=== PATIENT | male | born 1955 | race Caucasian/White ===

== ENCOUNTER 2018-06-06 15:06 | Observation (INO) ==
--- NOTE | 2018-06-06 16:35 | Pharmacy Consult Notes ---
[facility] Pharmacy VTE Monitoring - Patient Demographics Admission date: 06/06/18 Report Date: 06/06/18 Time: 16:35 Allergies/Adverse Reactions: Patient Allergies No Known Drug Allergies Allergy (Unknown, Verified 06/06/18 16:17) Unknown allergy reaction Height: 1.83 m Weight: 98.571 kg - VTE Risk Clinical Trial Participant: No - Prophylaxis VTE Prophylaxis Ordered?: Yes Types of VTE Prophylaxis: TEDS Knee High
--- NOTE | 2018-06-06 17:17 | History & Physical Report ---
*Admission Date: 06/06/18 <Mirna Palmer 06/06/18 17:45> *Chief complaint: Abdominal pain <Mirna Palmer 06/06/18 17:45> *History of present illness: Mr. Castanon is a 62-year-old male with a history of chronic back pain who presented to the office of [facility] complaining of dizziness and abdominal pain. He states that he has not felt well for about a week with a congested cough and upper abdominal pain. He has had difficulty with constipation and took a laxative on 06/03/2018 with minimal results. His bowels also moved minimally this morning. He has been eating very little due to nausea, heartburn, and upper abdominal/ epigastric pain. He has not vomited. He denies any melena or hematochezia. He is experiencing belching, bloating, along with the discomfort. He did try to go to work this morning and became diaphoretic and fainted. He stated this also happened last week as well. He is unsure if he was totally unconscious. He had the same abdominal discomfort but no actual chest pain. He feels short of breath due to the pressure in his abdomen. In the office of [facility] he was felt to be a little dehydrated and was tachycardic. With this generalized abdominal pain he was admitted for further evaluation and treatment. To note also his father of colon cancer in his 60s. Mr. Castanon has never had a GI workup. At the time of this exam patient continues to have upper abdominal pain and feels short of breath. O2 sats are 97%, heart rate is 100-110. He has had his x-rays completed and results are pending. Labs are being drawn at present. <Mirna Palmer 06/06/18 17:45> [facility] History Medical History: Reports:: Gastroesophageal Reflux Disease(GERD) Denies:: Cerebrovascular Accident, Diabetes Mellitus Type 2 <Mirna Palmer 06/06/18 17:45> *Have you ever received a pneumonia vaccine?: No <Mirna Palmer 06/06/18 17:45> *Have you received a flu vaccine this season?: No <Mirna Palmer 06/06/18 17:45> Comment:: He does experience chronic back pain <Palmer,Mirna 06/06/18 17:45> Laterality Cases: Bilateral: Tonsillectomy <SpencerMirna 06/06/18 17:45> Other Surgeries: Yes: Hernia Repair <SpencerMirna 06/06/18 17:45> - *Social History Smoking Status: Current every day smoker <SpencerMirna 06/06/18 17:45> Alcohol Intake: current <PalmerMirna 06/06/18 17:45> Alcohol Intake Frequency:: other <PalmreMirna 06/06/18 17:45> *Occupational Status:: employed <PalmerMirna 06/06/18 17:45> Housing: house <SpencerMirna 06/06/18 17:45> *Travel in the last 8 weeks: None <PalmerMirna 06/06/18 17:45> Family Hx:: Cancer <PalmerMirna 06/06/18 17:45> Comment: father with colon cancer <PalmerMirna 06/06/18 17:45> Review of Systems - Constitutional Reports fatigue, Reports headache(s), Reports lack of energy, Denies fever(s) <PalmerMirna 06/06/18 17:45> - ENT Reports ear pain, Reports sore throat <PalmerMirna 06/06/18 17:45> - *Cardiovascular Reports shortness of breath, Reports fainting, Denies chest pain, Denies generalized swelling, Denies irregular heart rhythm, Denies leg swelling, Denies rapid, pounding, or irregular heartbeat <Palmer,Mirna 06/06/18 17:45> - *Respiratory Reports cough, Reports shortness of breath, Denies coughing up blood <PalmerMirna 06/06/18 17:45> - *Gastrointestinal Reports abdominal pain, Reports belching, Reports bloating, Reports change in bowel habits, Reports change in stools, Reports constipation, Reports heartburn, Reports nausea, Denies coffee ground vomit, Denies excessive passing of gas, Denies incontinent of stools, Denies vomiting blood, Denies black, tarry stools, Denies vomiting <SpencerMirna 06/06/18 17:45> - *Genitourinary Denies difficulty urinating <Mirna Palmer - 06/06/18 17:45> - *Musculoskeletal Reports back pain, Denies abnormal walking <Mirna Palmer - 06/06/18 17:45> - *Neurologic Reports dizziness, Reports dizziness, Reports weakness, Denies abnormal walking, Denies abnormal speech, Denies seizure-like activity, Denies seizure-like activity <Mirna Palmer - 06/06/18 17:45> Meds Allergies Allergy/AdvReac Type Severity Reaction Status Date / Time No Known Drug Allergies Allergy Unknown Unknown Verified 06/06/18 16:17 allergy reaction <Drake Robles - 06/06/18 19:11> Exam Vital signs and Labs for Last 24 Hours: Temp Pulse Resp BP Pulse Ox 97.5 F L 94 H 18 141/96 H 97 06/06/18 16:32 06/06/18 16:32 06/06/18 16:32 06/06/18 16:32 06/06/18 16:32 Laboratory Results - last 24 hr 06/06/18 17:40: WBC 11.6 H, RBC 5.75, Hgb 17.1, Hct 49.7, MCV 86.6, MCH 29.8, MCHC 34.4, RDW 13.4, Plt Count 268, MPV 7.4, Neut % (Auto) 64.7, Lymph % (Auto) 24.8, [place]ha % (Auto) 8.1, Eos % (Auto) 1.5, Baso % (Auto) 0.9, Neut # (Auto) 7.5, Lymph # (Auto) 2.9, [place]ha # (Auto) 0.9, Eos # (Auto) 0.2, Baso # (Auto) 0.1 06/06/18 17:40: Sodium 139, Potassium 4.2, Chloride 103, Carbon Dioxide 25, Anion Gap 15.2 H, BUN 18, Creatinine 1.04, Estimated Creat Clear 103, Estimated GFR 72, Est GFR ( Amer) 88, Glucose 83, Calcium 9.2, Total Bilirubin 0.8, AST 18, ALT 27, Alkaline Phosphatase 62, Total Protein 7.3, Albumin 4.0, Globulin 3.3 H, Albumin/Globulin Ratio 1.2, TSH 2.38 06/06/18 17:40: Troponin I < 0.02, Amylase 67 06/06/18 17:40: Lipase 170 <Drake Robles - 06/06/18 19:11> Temp Pulse Resp BP Pulse Ox 97.5 F L 94 H 18 141/96 H 97 06/06/18 16:32 06/06/18 16:32 06/06/18 16:32 06/06/18 16:32 06/06/18 16:32 <Mirna Palmer - 06/06/18 17:45> I & O for Last 24 hours: Intake & Output 06/03/18 06/04/18 06/05/18 06/06/18 23:59 23:59 23:59 23:59 Intake Total 1360 / 1360 Balance 1360 / 1360 Weight 217 lb 5 oz <Drake Robles - 06/06/18 19:11> Intake & Output 06/04/18 06/05/18 06/06/18 06/07/18 11:59 11:59 11:59 11:59 Weight 217 lb 5 oz <Mirna Palmer 06/06/18 17:45> - Constitutional no acute distress <SpencerMirna 06/06/18 17:45> - *Routine HEENT Exam Head: Present: normocephalic, atraumatic <PalmerMirna 06/06/18 17:45> Eye: Present: PERRL <SpencerMirna 06/06/18 17:45> ENT: Present: mucous membranes moist, oropharynx clear <PalmerMirna 06/06/18 17:45> - *Routine Neck Exam Present: supple, full ROM. Absent: carotid bruit, lymphadenopathy, thyromegaly <PalmerMirna 06/06/18 17:45> - *Routine Respiratory Exam Present: CTA bilaterally (A&P) <PalmerMirna 06/06/18 17:45> - *Routine Cardiovascular Exam Present: RRR (100-110/min) <PalmerMirna 06/06/18 17:45> - *Routine Abdominal Exam Present: soft, normoactive bowel sounds, tenderness (epigastrium and LUQ). Absent: guarding, organomegaly <PalmerMirna Casie 06/06/18 17:45> - *Routine Extremities Exam Absent: edema, calf tenderness <Mirna Palmer - 06/06/18 17:45> - *Routine Neurological Exam Present: alert, oriented X3 <Mirna Palmer - 06/06/18 17:45> Assessment and Plan (1) Abdominal pain Current visit: Yes Status: Acute Category: Medical Code(s): R10.9 - Unspecified abdominal pain (2) GERD (gastroesophageal reflux disease) Current visit: Yes Status: Acute Category: Medical Code(s): K21.9 - Gastro-esophageal reflux disease without esophagitis (3) Tachycardia Current visit: Yes Status: Acute Category: Medical Code(s): R00.0 - Tachycardia, unspecified (4) Shortness of breath Current visit: Yes Status: Acute Category: Medical Code(s): R06.02 - Shortness of breath (5) Left-sided low back pain without sciatica Current visit: Yes Status: Acute Category: Medical Code(s): M54.5 - Low back pain <Drake Robles - 06/06/18 19:11> (1) Abdominal pain Current visit: Yes Status: Acute Category: Medical Code(s): R10.9 - Unspecified abdominal pain (2) GERD (gastroesophageal reflux disease) Current visit: Yes Status: Acute Category: Medical Code(s): K21.9 - Gastro-esophageal reflux disease without esophagitis (3) Tachycardia Current visit: Yes Status: Acute Category: Medical Code(s): R00.0 - Tachycardia, unspecified (4) Shortness of breath Current visit: Yes Status: Acute Category: Medical Code(s): R06.02 - Shortness of breath (5) Left-sided low back pain without sciatica Current visit: Yes Status: Acute Category: Medical Code(s): M54.5 - Low back pain <Mirna Palmer - 06/06/18 17:09> - Assessment and plan all Dx Assessment and Plan for all problems:: Saw patient in the office and here at [facility] after admission, agree with above note. <Drake Robles - 06/06/18 19:11> Labs and x-ray results are pending. We will start him on a PPI, full liquids, Dulcolax tabs, antiemetics and pain medicine. Further treatment as indicated by test results and patient response. <Mirna Palmer - 06/06/18 17:45>
[2018-06-06 18:01] LABS: Basophils # 0.1 K/mm3 (0-0.2); Basophils % 0.9 % (0.1-2.0); Eosinophils # 0.2 K/mm3 (0.0-0.4); Eosinophils % 1.5 % (0.1-12.0); Hematocrit 49.7 % (42.0-52.0); Hemoglobin 17.1 g/dL (14.1-18.0); Lymphocytes # 2.9 K/mm3 (0.7-4.5); Lymphocytes % 24.8 % (10-50); Mean Corpuscular HGB Conc 34.4 g/dL (31.8-35.4); Mean Corpuscular Hemoglobin 29.8 pg (27.0-31.2); Mean Corpuscular Volume 86.6 fl (80-94); Mean Platelet Volume 7.4 fl (7.4-10.4); Monocytes # 0.9 K/mm3 (0.1-1.0); Monocytes % 8.1 % (1.7-9.3); Neutrophils # 7.5 K/mm3 (1.8-7.8); Neutrophils % 64.7 % (37.0-80.0); Platelet Count 268 K/mm3 (142-424); Red Blood Count 5.75 M/mm3 (4.60-6.20); Red Cell Distribution Width 13.4 % (11.5-17.5); White Blood Count 11.6 K/mm3 (4.8-10.8)
[2018-06-06 18:15] LABS: Amylase 67 U/L (25-115)
[2018-06-06 18:22] LABS: Albumin/Globulin Ratio 1.2 (1.1-1.8); Anion Gap 15.2 mEq/L (5-15); Bilirubin,Total 0.8 mg/dL (0.2-1.0); Calcium 9.2 mg/dL (8.5-10.1); Globulin 3.3 gm/dl (1.3-3.2); Potassium 4.2 mmoL/L (3.5-5.1); Thyroid Stimulating Hormone 2.38 uIU/ml (0.358-3.740); Total Protein,Serum 7.3 gm/dL (6.4-8.2)
[2018-06-06 21:33] LABS: Microscopic, Urine URINE MICROSCOPIC (MICROSCOPIC)
[2018-06-06 21:37] LABS: Appearance,Urine CLEAR (Clear); Bilirubin,Urine Negative (Negative); Blood, Urine TRACE-I (Negative); Color,Urine YELLOW (Yellow); Glucose,Urine (UA) Negative (Negative); Ketones,Urine TRACE (Negative); Leukocyte Esterase,Urine Negative (Negative); Protein,Urine Negative (Negative); Urobilinogen,Urine 0.2 EU/dl (0.2)
[2018-06-06 22:03] LABS: Bacteria,Urine Trace /lpf; RBC,Urine Occasional #/hpf (0-3); Squamous Epithelial Cell,Urine Occasional #/hpf (0-5)
[2018-06-07 05:54] LABS: Basophils # 0.1 K/mm3 (0-0.2); Basophils % 0.8 % (0.1-2.0); Eosinophils # 0.3 K/mm3 (0.0-0.4); Eosinophils % 4.6 % (0.1-12.0); Hematocrit 42.4 % (42.0-52.0); Lymphocytes # 2.3 K/mm3 (0.7-4.5); Lymphocytes % 33.5 % (10-50); Mean Corpuscular HGB Conc 34.6 g/dL (31.8-35.4); Mean Corpuscular Hemoglobin 30.3 pg (27.0-31.2); Mean Corpuscular Volume 87.4 fl (80-94); Mean Platelet Volume 7.3 fl (7.4-10.4); Monocytes # 0.5 K/mm3 (0.1-1.0); Monocytes % 7.5 % (1.7-9.3); Neutrophils # 3.6 K/mm3 (1.8-7.8); Neutrophils % 53.6 % (37.0-80.0); Platelet Count 216 K/mm3 (142-424); Red Blood Count 4.85 M/mm3 (4.60-6.20); Red Cell Distribution Width 13.4 % (11.5-17.5); White Blood Count 6.8 K/mm3 (4.8-10.8)
[2018-06-07 06:01] LABS: Calcium 8.5 mg/dL (8.5-10.1)
[2018-06-07 06:21] LABS: Hemoglobin 14.8 g/dL (14.1-18.0)
--- NOTE | 2018-06-07 08:26 | Progress Note ---
<Mirna Palmer - Last Filed: 06/07/18 08:38> Internal Medicine - PN: Subj Interval history: Patient had a comfortable night although he did not sleep. He states that tramadol did help his pain yesterday. He is now experiencing some epigastric discomfort along with reflux. He becomes short of breath with the discomfort. He has been taking clear liquids and is now drinking a pop. He has been voiding without difficulty. Bowels have not moved. He is passing flatus. Exam Vital signs and Labs for Last 24 Hours: Temp Pulse Resp BP Pulse Ox 97.7 F 68 18 121/76 97 06/07/18 07:29 06/07/18 07:29 06/07/18 07:29 06/07/18 07:29 06/07/18 07:29 Laboratory Results - last 24 hr 06/06/18 17:40: WBC 11.6 H, RBC 5.75, Hgb 17.1, Hct 49.7, MCV 86.6, MCH 29.8, MCHC 34.4, RDW 13.4, Plt Count 268, MPV 7.4, Neut % (Auto) 64.7, Lymph % (Auto) 24.8, [place] % (Auto) 8.1, Eos % (Auto) 1.5, Baso % (Auto) 0.9, Neut # (Auto) 7.5, Lymph # (Auto) 2.9, [place] # (Auto) 0.9, Eos # (Auto) 0.2, Baso # (Auto) 0.1 06/06/18 17:40: Sodium 139, Potassium 4.2, Chloride 103, Carbon Dioxide 25, Anion Gap 15.2 H, BUN 18, Creatinine 1.04, Estimated Creat Clear 103, Estimated GFR 72, Est GFR ( Amer) 88, Glucose 83, Calcium 9.2, Total Bilirubin 0.8, AST 18, ALT 27, Alkaline Phosphatase 62, Total Protein 7.3, Albumin 4.0, Globulin 3.3 H, Albumin/Globulin Ratio 1.2, TSH 2.38 06/06/18 17:40: Troponin I < 0.02, Amylase 67 06/06/18 17:40: Lipase 170 06/06/18 20:31: Urine Color Yellow, Urine Appearance Clear, Urine pH 6.0, Ur Specific [place] 1.020, Urine Protein Negative, Urine Glucose (UA) Negative, Urine Ketones Trace, Urine Blood Trace-i, Urine Nitrate Negative, Urine Bilirubin Negative, Urine Urobilinogen 0.2, Ur Leukocyte Esterase Negative, Urine RBC Occasional, Urine WBC 3-5, Ur Squamous Epith Cells Occasional, Urine Bacteria Trace 06/07/18 05:32: WBC 6.8 D, RBC 4.85, Hgb 14.8 D, Hct 42.4, MCV 87.4, MCH 30.3, MCHC 34.6, RDW 13.4, Plt Count 216, MPV 7.3 L, Neut % (Auto) 53.6, Lymph % (Auto) 33.5, [place] % (Auto) 7.5, Eos % (Auto) 4.6, Baso % (Auto) 0.8, Neut # (Auto) 3.6, Lymph # (Auto) 2.3, [place] # (Auto) 0.5, Eos # (Auto) 0.3, Baso # (Auto) 0.1 06/07/18 05:32: Sodium 140, Potassium 4.0, Chloride 105, Carbon Dioxide 24, Anion Gap 15.0, BUN 14, Creatinine 0.95, Estimated Creat Clear 107, Estimated GFR 80, Est GFR ( Amer) 97, Glucose 95, Calcium 8.5 I & O for Last 24 hours: Intake & Output 06/04/18 06/05/18 06/06/18 06/07/18 11:59 11:59 11:59 11:59 Intake Total 2179 / 2179 Output Total 1400 / 1400 Balance 779 / 779 Weight 217 lb 5 oz Radiology Reports for the Last 24 Hours: 06/06/2018 acute abdominal series IMPRESSION: No free air beneath the diaphragm Nonspecific bowel gas pattern. No obstruction. No prominent bowel dilatation or wall. However I would note a borderline distended gas-filled loop of small bowel at mid epigastric region, as well along with generous gas and transverse colon in this same region.--. Localized gas-filled bowel loops at midepigastric region is a pattern that can be seen with pancreatitis thus you may want to exclude such in the workup. 06/06/2018 chest x-ray IMPRESSION Nothing definitely acute of the chest Regarding abdominal pain no No free air beneath the diaphragm. No focal pneumonia Small 5 mm nodular density at the left midlung,, with similar small nodular density upper right lung at the second anterior interspace-I suspect these are most likely partially calcified granulomas;... But prior CXR if available or follow-up CXR in 2-3 months would be helpful to confirm such. - Constitutional no acute distress - *Routine Respiratory Exam Present: CTA bilaterally (Anteriorly and posteriorly) - *Routine Cardiovascular Exam Present: RRR - *Routine Abdominal Exam Present: soft, normoactive bowel sounds, tenderness (Epigastrium), distended - *Routine Extremities Exam Absent: edema, calf tenderness - *Routine Neurological Exam Present: alert, oriented X3 Assessment and Plan (1) Abdominal pain Current visit: Yes Status: Acute Category: Medical Code(s): R10.9 - Unspecified abdominal pain (2) GERD (gastroesophageal reflux disease) Current visit: Yes Status: Acute Category: Medical Code(s): K21.9 - Gastro-esophageal reflux disease without esophagitis (3) Tachycardia Current visit: Yes Status: Acute Category: Medical Code(s): R00.0 - Tachycardia, unspecified (4) Shortness of breath Current visit: Yes Status: Acute Category: Medical Code(s): R06.02 - Shortness of breath (5) Left-sided low back pain without sciatica Current visit: Yes Status: Acute Category: Medical Code(s): M54.5 - Low back pain - Assessment and plan all Dx Assessment and Plan for all problems:: Patient receiving tramadol now for his pain. Continue with IV fluids for now. CBC is normal today. Electrolytes are normal. Will obtain right upper quadrant ultrasound. <Drake Robles - Last Filed: 06/07/18 08:44> Exam Vital signs and Labs for Last 24 Hours: Temp Pulse Resp BP Pulse Ox 97.7 F 68 18 121/76 97 06/07/18 07:29 06/07/18 07:29 06/07/18 07:29 06/07/18 07:29 06/07/18 07:29 Laboratory Results - last 24 hr 06/06/18 17:40: WBC 11.6 H, RBC 5.75, Hgb 17.1, Hct 49.7, MCV 86.6, MCH 29.8, MCHC 34.4, RDW 13.4, Plt Count 268, MPV 7.4, Neut % (Auto) 64.7, Lymph % (Auto) 24.8, [place] % (Auto) 8.1, Eos % (Auto) 1.5, Baso % (Auto) 0.9, Neut # (Auto) 7.5, Lymph # (Auto) 2.9, [place] # (Auto) 0.9, Eos # (Auto) 0.2, Baso # (Auto) 0.1 06/06/18 17:40: Sodium 139, Potassium 4.2, Chloride 103, Carbon Dioxide 25, Anion Gap 15.2 H, BUN 18, Creatinine 1.04, Estimated Creat Clear 103, Estimated GFR 72, Est GFR ( Amer) 88, Glucose 83, Calcium 9.2, Total Bilirubin 0.8, AST 18, ALT 27, Alkaline Phosphatase 62, Total Protein 7.3, Albumin 4.0, Globulin 3.3 H, Albumin/Globulin Ratio 1.2, TSH 2.38 06/06/18 17:40: Troponin I < 0.02, Amylase 67 06/06/18 17:40: Lipase 170 06/06/18 20:31: Urine Color Yellow, Urine Appearance Clear, Urine pH 6.0, Ur Specific [place] 1.020, Urine Protein Negative, Urine Glucose (UA) Negative, Urine Ketones Trace, Urine Blood Trace-i, Urine Nitrate Negative, Urine Bilirubin Negative, Urine Urobilinogen 0.2, Ur Leukocyte Esterase Negative, Urine RBC Occasional, Urine WBC 3-5, Ur Squamous Epith Cells Occasional, Urine Bacteria Trace 06/07/18 05:32: WBC 6.8 D, RBC 4.85, Hgb 14.8 D, Hct 42.4, MCV 87.4, MCH 30.3, MCHC 34.6, RDW 13.4, Plt Count 216, MPV 7.3 L, Neut % (Auto) 53.6, Lymph % (Auto) 33.5, [place] % (Auto) 7.5, Eos % (Auto) 4.6, Baso % (Auto) 0.8, Neut # (Auto) 3.6, Lymph # (Auto) 2.3, [place] # (Auto) 0.5, Eos # (Auto) 0.3, Baso # (Auto) 0.1 06/07/18 05:32: Sodium 140, Potassium 4.0, Chloride 105, Carbon Dioxide 24, Anion Gap 15.0, BUN 14, Creatinine 0.95, Estimated Creat Clear 107, Estimated GFR 80, Est GFR ( Amer) 97, Glucose 95, Calcium 8.5 I & O for Last 24 hours: Intake & Output 06/04/18 06/05/18 06/06/18 06/07/18 23:59 23:59 23:59 23:59 Intake Total 1360 / 1360 819 / 819 Output Total 300 / 300 1100 / 1100 Balance 1060 / 1060 -281 / -281 Weight 217 lb 5 oz Assessment and Plan (1) Abdominal pain Current visit: Yes Status: Acute Category: Medical Code(s): R10.9 - Unspecified abdominal pain (2) GERD (gastroesophageal reflux disease) Current visit: Yes Status: Acute Category: Medical Code(s): K21.9 - Gastro-esophageal reflux disease without esophagitis (3) Tachycardia Current visit: Yes Status: Acute Category: Medical Code(s): R00.0 - Tachycardia, unspecified (4) Shortness of breath Current visit: Yes Status: Acute Category: Medical Code(s): R06.02 - Shortness of breath (5) Left-sided low back pain without sciatica Current visit: Yes Status: Acute Category: Medical Code(s): M54.5 - Low back pain - Assessment and plan all Dx Assessment and Plan for all problems:: Saw patient, agree with above note.
--- NOTE | 2018-06-07 22:26 | Discharge Summary ---
General - General Admission date:: 06/06/18 Discharge date: 06/07/18 HPI HPI: Mr. Castanon is a 62-year-old male with a history of chronic back pain who presented to the office of [facility] complaining of dizziness and abdominal pain. He states that he has not felt well for about a week with a congested cough and upper abdominal pain. He has had difficulty with constipation and took a laxative on 06/03/2018 with minimal results. His bowels also moved minimally this morning. He has been eating very little due to nausea, heartburn, and upper abdominal/ epigastric pain. He has not vomited. He denies any melena or hematochezia. He is experiencing belching, bloating, along with the discomfort. He did try to go to work this morning and became diaphoretic and fainted. He stated this also happened last week as well. He is unsure if he was totally unconscious. He had the same abdominal discomfort but no actual chest pain. He feels short of breath due to the pressure in his abdomen. In the office of [facility] he was felt to be a little dehydrated and was tachycardic. With this generalized abdominal pain he was admitted for further evaluation and treatment. To note also his father of colon cancer in his 60s. Mr. Castanon has never had a GI workup. At the time of this exam patient continues to have upper abdominal pain and feels short of breath. O2 sats are 97%, heart rate is 100-110. He has had his x-rays completed and results are pending. Labs are being drawn at present. Hospital Course Hospital Course: The patient's abdominal x-ray showed a borderline distended gas-filled loop of small bowel at the mid epigastric area as well as generous gas in the transverse colon. The patient's chest x-ray showed nothing acute other than a small 5 mm nodular density at left mid lung. The patient was started on a PPI, full liquid diet, Dulcolax tablets, antiemetics, and pain medication. His amylase and lipase were normal. The tramadol did help his pain but he continued with epigastric discomfort with reflux. He tolerated clear liquids. His white blood cell count was initially elevated but normalized. An ultrasound was ordered of the right upper quadrant. It showed gallbladder sludge. The patient's diet was advanced to full liquids and he tolerated this well and was passing gas. He was stable to be discharged home with an outpatient HIDA scan. Objective Vital signs: Temp Pulse Resp BP Pulse Ox 97.7 F 59 L 18 145/81 H 100 06/07/18 16:00 06/07/18 16:00 06/07/18 16:00 06/07/18 16:00 06/07/18 16:00 Narrative: - Constitutional no acute distress - *Routine HEENT Exam Head: Present: normocephalic, atraumatic Eye: Present: PERRL ENT: Present: mucous membranes moist, oropharynx clear - *Routine Neck Exam Present: supple, full ROM. Absent: carotid bruit, lymphadenopathy, thyromegaly - *Routine Respiratory Exam Present: CTA bilaterally (A&P) - *Routine Cardiovascular Exam Present: RRR (100-110/min) - *Routine Abdominal Exam Present: soft, normoactive bowel sounds, tenderness (epigastrium and LUQ). Absent: guarding, organomegaly - *Routine Extremities Exam Absent: edema, calf tenderness - *Routine Neurological Exam Present: alert, oriented X3 Results Labs on day of discharge: Labs from last 24 hours 06/07/18 06/07/18 05:32 05:32 WBC 6.8 D RBC 4.85 Hgb 14.8 D Hct 42.4 MCV 87.4 MCH 30.3 MCHC 34.6 RDW 13.4 Plt Count 216 MPV 7.3 L Neut % (Auto) 53.6 Lymph % (Auto) 33.5 [place] % (Auto) 7.5 Eos % (Auto) 4.6 Baso % (Auto) 0.8 Neut # (Auto) 3.6 Lymph # (Auto) 2.3 [place] # (Auto) 0.5 Eos # (Auto) 0.3 Baso # (Auto) 0.1 Sodium 140 Potassium 4.0 Chloride 105 Carbon Dioxide 24 Anion Gap 15.0 BUN 14 Creatinine 0.95 Estimated Creat Clear 107 Estimated GFR 80 Est GFR ( Amer) 97 Glucose 95 Calcium 8.5 DS: Diagnosis - Discharge Diagnosis (1) Abdominal pain Status: Acute (2) GERD (gastroesophageal reflux disease) Status: Acute (3) Tachycardia Status: Acute (4) Shortness of breath Status: Acute (5) Left-sided low back pain without sciatica Status: Acute Discharge Plan - Patient Discharge Instructions ACTIVITY: Continue current activity DIET: continue same diet (low fat) Additional Instructions: Please take medications as prescribed. Follow up with Dr. Robles in 2 weeks. Patient Instructions: DI for Gastroesophageal Reflux Disease (GERD), DI for Abdominal Pain-Adult - Follow up Plan Follow up with: Drake Robles MD [Primary Care Provider] - 2 weeks Disposition: Home, Self-[facility] Medications: Home Medications Medication Instructions Recorded Confirmed Type No Known Home Medications 06/07/18 06/07/18 History Ondansetron HCl [Zofran 4mg Tab] 4 mg PO Q8HP PRN #20 tab 06/07/18 Rx Polyethylene Glycol 3350 [Miralax 17 gm PO DAILY #30 day 06/07/18 Rx Powder] Tramadol HCl [Tramadol 50mg 50 mg PO Q4HP PRN #18 tab 06/07/18 Rx Tab] Prescriptions/Medication Reconciliation: New Polyethylene Glycol 3350 [Miralax Powder] 17 gm PO DAILY #30 day Tramadol HCl [Tramadol 50mg Tab] 50 mg PO Q4HP PRN #18 tab PRN Reason: Moderate Pain Ondansetron HCl [Zofran 4mg Tab] 4 mg PO Q8HP PRN #20 tab PRN Reason: Nausea Continue No Known Home Medications
== END 2018-06-07 17:35 | disposition home or self-care (01) ==
LOC: 2ND
PROVIDERS: ADMIT Family Medicine; ATTEND Family Medicine
CPT/HCPCS: 36415; 71020; 71046; 74019; 74020; 76705; 80048; 80053; 81001; 82150; 83690; 84443; 84484; 85025; 93005; G0378

== ENCOUNTER → 2018-06-15 09:30 | Outpatient (CLI) | payer BC, SELFPAY ==
--- NOTE | 2018-06-15 09:32 | NM_ITS ---
NM hepatobiliary [facility] pharm HISTORY: Right upper quadrant pain ITS.REASON: EPIGASTRIC PAIN, GB SLUDGE ORDERING PHYSICIAN: Drake Robles MD PATIENT AGE: 62 years COMPARISON: None DOSE: 8.53MCI TC choletec FINDINGS: Homogeneous activity is present within the hepatic parenchyma. Activity is present in the gallbladder by 15 minutes. Activity is present in the small bowel by 50 minutes. The gallbladder ejection fraction is calculated to be 91% which is within normal limits. The patient did not report pain or other symptoms during CCK infusion. IMPRESSION: Unremarkable hepatobiliary scan and gallbladder ejection fraction. No evidence of common or cystic duct obstruction with normal gallbladder ejection fraction
== END ==
PROVIDERS: PCP Family Medicine; Visit Provider Family Medicine
DX: R10.13 Epigastric pain (principal); K82.8 Other specified diseases of gallbladder
CPT/HCPCS: 78226; A9537; J2805

== ENCOUNTER → 2018-06-28 08:34 | Outpatient (CLI) | payer BC, SELFPAY ==
[2018-06-28 09:15] LABS: Blood Urea Nitrogen 7 mg/dL (7-18); Creatinine,Serum 0.96 mg/dL (0.70-1.30); Estimated Glomerular Filt Rate 79 ml/min (>60); GFR (African American) 96 ML/MIN (>60)
--- NOTE | 2018-06-28 09:28 | CT_ITS ---
CT abdomen pelvis w con CLINICAL INDICATION: Epigastric pain, constipation ITS.REASON: EPIGASTRIC PAIN ORDERING PHYSICIAN: Drake Robles MD PATIENT AGE: 62 years COMPARISON: None TECHNIQUE: Axial images obtained with sagittal and coronal reformats. All CT scans at the facility use one or more dose reduction, viz: automated exposure control, ma/kV adjustment per patient size (including targeted exams where dose is matched to indication, i.e. head), or iterative reconstruction technique. PROCEDURE: Oral Contrast: Redicat IV Contrast: 75 mL's Optiray 350. FINDINGS: Lower thorax: There are coronary artery calcifications. Lung bases are clear. The liver, gallbladder, spleen, adrenal glands, kidneys, and pancreas have an unremarkable appearance. No renal or ureteral calculi. No hydronephrosis. No intestinal obstruction or free air. Unremarkable appendix. There is diverticulosis of the descending and sigmoid colon but no evidence of diverticulitis. There is increased density in the right inguinal region which may be due to prior surgery. The prostate is slightly prominent at 5.7 cm. No pelvic mass or abnormal fluid collection is evident. There are degenerative changes in the lumbar spine and hips IMPRESSION: 1. No acute abdominal or pelvic findings. 2. Coronary artery calcifications. 3. Sigmoid diverticulosis. No evidence of diverticulitis There are degenerative changes in the lumbar spine and hips.
== END ==
PROVIDERS: PCP Family Medicine; Visit Provider Family Medicine
DX: R10.13 Epigastric pain (principal)
CPT/HCPCS: 36415; 74177; 82565; 84520; Q9967

== ENCOUNTER 2020-08-06 17:23 | Emergency (ER) | payer BC, SELFPAY ==
[2020-08-06 17:45] VITALS: BP 122/97; PULSE 108; RESP 14; TEMP 36.9; O2SAT 98; BMI 29.1
--- NOTE | 2020-08-06 18:02 | HMH.EDUTC ---
[facility] [place] Clinical Impression: Status post administration of all doses of COVID-19 vaccine series Nausea & vomiting Qualifiers: Vomiting type: unspecified Vomiting Intractability: non-intractable Qualified Code(s): R11.2 - Nausea with vomiting, unspecified Disposition: Home, Self-Care Condition on Discharge: Good Instructions: Ondansetron Additional Instructions: Drink plenty of fluids. Take the zofran (ondesetron) for nausea/vomiting Return if you begin to have difficulty breathing or any worsening symptoms. Follow up with your regular doctor. GO TO THE ER FOR ANY WORSENING SYMPTOMS Prescriptions: Ondansetron [Zofran 4mg ODT] 4 mg PO Q8HP PRN #20 tab.rapdis PRN Reason: Nausea Transmission Status: Received by [facility] Referrals: Drake Robles MD [Primary Care Provider] - Time of Disposition: 18:14 Medical Decision Making - Medical Records Medical records reviewed: No: I reviewed the patient's medical records. - Ren Inquiry Pt receiving controlled substance: No Vital Signs: 08/06/20 17:45 08/06/20 18:15 Temperature 98.5 F 98 F Temperature Source Oral Pulse Rate 99 H Pulse Rate [Right] 108 H Respiratory Rate 14 16 Blood Pressure 000/00 L Blood Pressure [Right Arm] 122/97 H Blood Pressure Mean [Right Arm] 105 02 Sat by Pulse Oximetry 98 [facility] [place] HPI - General Stated complaint: vomiting, stomach Time Seen by Provider: 08/06/20 18:02 Mode of Arrival: Ambulatory Source of Information: Patient Limitations: No Limitations Description of Symptoms (Recalled from Triage Doc. by RN): pt had second covid inj last wed. pt has been having n/v off and on since. pt states he hasn't been able to eat since wednesday. HEENT Symptoms (Recalled from RN notes): No Resp Symptoms (Recalled from RN notes): No Skin Symptoms (Recalled from RN notes): No MS Symptoms (Recalled from RN notes): No Functional Status (Recalled from RN notes): na - History of Present Illness Provider Complaint: He states that after he got his second covid-19 vaccine he had nausea and vomiting. His symptoms have lasted up until today (around 1 week). He states that he has started to feel some better, but he wanted to come in to get checked out. - Related Data Home Medications Medication Instructions Recorded Confirmed polyethylene glycoL 3350 [Miralax 17 gm PO DAILY 06/29/18 06/29/18 Powder] Previous Rx's Medication Instructions Recorded Ondansetron [Zofran 4mg ODT] 4 mg PO Q8HP PRN #20 tab.rapdis 08/06/20 Allergies Allergy/AdvReac Type Severity Reaction Status Date / Time No Known Drug Allergies Allergy Unknown Unknown Verified 06/29/18 11:14 allergy reaction - Worker's Comp Is this a Worker's Comp case?: No [facility] History - Hepatitis A Screen Drug use history?: No High risk sexual behaviors?: No History of sexually transmitted infection?: No Currently employed?: No Childcare worker?: No Do you have indoor plumbing?: Yes Do you have electricity?: Yes Attestation statement:: This patient has been screened for Hepatitis A risk factors. I have reviewed the patient's past medical history: Yes Medical History: Reports:: Gastroesophageal Reflux Disease(GERD) Denies:: Cerebrovascular Accident, Diabetes Mellitus Type 1, Diabetes Mellitus Type 2, Internal Pacemaker, Lung Disease, Seizures Other Medical History: Denies: Blood Transfusion Reaction Comment: He does experience chronic back pain Laterality Cases: Bilateral: Tonsillectomy Other Surgeries: Yes: Hernia Repair. No: Pacemaker - Social History Smoking Status: Current every day smoker Tobacco Type: cigarettes # Packs/Day (cigarettes): 1 Alcohol Intake: current Alcohol Intake Frequency:: other Occupational Status: employed Housing: house Family Hx:: Cancer Comment: father with colon cancer ROS Obtained: Yes All systems reviewed & no additional complaints - Constitutional Constituti
[2020-08-06 18:15] VITALS: BP 000/00; PULSE 99; RESP 16; TEMP 36.6
== END 2020-08-06 18:18 | disposition home or self-care (01) ==
PROVIDERS: Emergency Provider Nurse Practitioner Family; PCP Family Medicine
DX: R11.2 Nausea with vomiting, unspecified (principal); T50.Z95A Adverse effect of other vaccines and biological substances, initial encounter; K21.9 Gastro-esophageal reflux disease without esophagitis; F17.210 Nicotine dependence, cigarettes, uncomplicated
CPT/HCPCS: 99202; G0463

== ENCOUNTER 2021-09-29 12:51 | Emergency (ER) | payer BC, MEDICARE, SELFPAY ==
[2021-09-29] VITALS (9 sets, daily range): BP systolic 131–177; BP diastolic 87–101; PULSE 63–105; RESP 15–18; TEMP 36.7; O2SAT 92–99; BMI 29.8
--- NOTE | 2021-09-29 13:00 | ECG_ITS ---
APPROVED REPORT Exam: Resting ECG HR:96 bpm ECG Measurements Heart Rate 96 AXES AR 140 P 8 QRSd 108 QRS -20 QT 355 T 2 QTc 408 Conclusion SINUS RHYTHM Left atrial abnormality INCOMPLETE RIGHT BUNDLE BRANCH BLOCK [90+ ms QRS DURATION, TERMINAL R IN V1/V2, 40+ ms S IN I/aVL/V4/V5/V6] POSSIBLE LEFT VENTRICULAR HYPERTROPHY [VOLTAGE CRITERIA PLUS LAE OR QRS WIDENING] ABNORMAL ECG UNCONFIRMED REPORT Electronically signed by : Delano Rodriguez MD 09/30/2021 14:15:51
[2021-09-29 13:37] LABS: Chloride 106 mmol/L (98-107); Sodium 137 mmol/L (136-145)
[2021-09-29 13:38] LABS: Potassium 3.9 mmoL/L (3.5-5.1)
[2021-09-29 13:40] LABS: Alanine Aminotransferase 29 U/L (12-78); Alkaline Phosphatase 49 U/L (38-126); Aspartate Amino Transferase 30 U/L (17-59); Basophils # 0.1 K/mm3 (0-0.2); Basophils % 1.6 % (0.1-2.0); Bilirubin,Total 0.7 mg/dl (0.2-1.3); Blood Urea Nitrogen 16 mg/dl (9-20); Creatinine Clearance Estimated 104 mL/min (50-200); Eosinophils # 0.2 K/mm3 (0.0-0.4); Eosinophils % 2.1 % (0.1-12.0); Estimated Glomerular Filt Rate 85 ml/min (>60); GFR (African American) 102 ML/MIN (>60); Hematocrit 45.7 % (42.0-52.0); Hemoglobin 15.8 g/dL (14.1-18.0); Lymphocytes # 2.1 K/mm3 (0.7-4.5); Lymphocytes % 25.6 % (10-50); Mean Corpuscular HGB Conc 34.7 g/dL (31.8-35.4); Mean Corpuscular Hemoglobin 30.2 pg (27.0-31.2); Mean Corpuscular Volume 87.1 fl (80-94); Mean Platelet Volume 7.2 fl (7.4-10.4); Monocytes # 0.5 K/mm3 (0.1-1.0); Monocytes % 5.5 % (1.7-9.3); Neutrophils # 5.3 K/mm3 (1.8-7.8); Neutrophils % 65.3 % (37.0-80.0); Platelet Count 248 K/mm3 (142-424); Red Blood Count 5.25 M/mm3 (4.60-6.20); Red Cell Distribution Width 13.2 % (11.5-17.5); White Blood Count 8.2 K/mm3 (4.8-10.8)
[2021-09-29 13:41] LABS: Albumin Level 4.3 g/dl (3.5-5.0); Albumin/Globulin Ratio 1.7 (1.1-1.8); Anion Gap 10.9 mEq/L (5-15); Calcium 9.1 mg/dl (8.4-10.2); Carbon Dioxide 24 mmol/L (22.0-30.0); Globulin 2.6 g/dL (1.3-3.2); Glucose 168 mg/dl (74-100); Total Protein,Serum 6.9 g/dl (6.3-8.2)
[2021-09-29 13:53] LABS: Troponin I < 0.01 ng/ml (0.00-0.034)
--- NOTE | 2021-09-29 13:53 | HMH.EDDIZZ ---
ED Disposition Clinical Impression: Hypertension Qualifiers: Hypertension type: primary hypertension Qualified Code(s): I10 - Essential (primary) hypertension Disposition: Home, Self-Care Condition on Discharge: Good Instructions: Dizziness, Nonvertigo Additional Instructions: Please follow-up with your PCP within the next couple days to talk about your blood pressure. Prescriptions: lisinopriL [Lisinopril] 10 mg PO DAILY 30 Days #30 tab Transmission Status: Received by [facility] Referrals: Drake Robles MD [Primary Care Provider] - - Critical Care Critical Care Time: No Attestation: On 09/29/21, the high probability of a clinically significant, sudden or life threatening deterioration of the following system(s) required my full and direct attention, intervention and personal management. The time I documented below is in addition to time spent performing reported procedures but includes the following listed in this critical care notation. Medical Decision Making - Ren Inquiry Pt receiving controlled substance: No Vital Signs: 09/29/21 12:52 09/29/21 13:30 09/29/21 13:31 Temperature 98.0 F Temperature Source Oral Pulse Rate 98 H Pulse Rate [Orthostatic Lying Right] 94 H Pulse Rate [Orthostatic Sitting Right] 97 H Pulse Rate [Orthostatic Standing Right] 105 H Pulse Rate [Right Radial] 97 H Respiratory Rate 18 16 Blood Pressure 131/87 Blood Pressure [Orthostatic Lying Right Arm] 156/91 H Blood Pressure [Orthostatic Sitting Right Arm] 163/94 H Blood Pressure [Orthostatic Standing Right Arm] 158/98 H Blood Pressure [Right Arm] 177/101 H Blood Pressure Mean 101 Blood Pressure Mean [Right Arm] 126 Blood Pressure Source Blood Pressure Source [Right Arm] Automatic Cuff Blood Pressure Position Blood Pressure Position [Right Arm] Sitting 02 Sat by Pulse Oximetry 98 97 Oxygen Delivery Method Room Air Room Air 09/29/21 14:00 09/29/21 14:30 09/29/21 15:01 Temperature Temperature Source Pulse Rate 87 78 63 Pulse Rate [Orthostatic Lying Right] Pulse Rate [Orthostatic Sitting Right] Pulse Rate [Orthostatic Standing Right] Pulse Rate [Right Radial] Respiratory Rate 15 15 15 Blood Pressure 144/91 H 141/89 H 141/88 H Blood Pressure [Orthostatic Lying Right Arm] Blood Pressure [Orthostatic Sitting Right Arm] Blood Pressure [Orthostatic Standing Right Arm] Blood Pressure [Right Arm] Blood Pressure Mean 101 105 Blood Pressure Mean [Right Arm] Blood Pressure Source Blood Pressure Source [Right Arm] Blood Pressure Position Blood Pressure Position [Right Arm] 02 Sat by Pulse Oximetry 96 97 92 L Oxygen Delivery Method 09/29/21 15:46 09/29/21 16:01 09/29/21 16:29 Temperature 98.0 F Temperature Source Pulse Rate 76 74 74 Pulse Rate [Orthostatic Lying Right] Pulse Rate [Orthostatic Sitting Right] Pulse Rate [Orthostatic Standing Right] Pulse Rate [Right Radial] Respiratory Rate 15 Blood Pressure 175/100 H 174/95 H 174/95 H Blood Pressure [Orthostatic Lying Right Arm] Blood Pressure [Orthostatic Sitting Right Arm] Blood Pressure [Orthostatic Standing Right Arm] Blood Pressure [Right Arm] Blood Pressure Mean 109 Blood Pressure Mean [Right Arm] Blood Pressure Source Automatic Cuff Blood Pressure Source [Right Arm] Blood Pressure Position Sitting Blood Pressure Position [Right Arm] 02 Sat by Pulse Oximetry 99 97 Oxygen Delivery Method Room Air - Lab Data Lab Results 09/29/21 13:08: WBC 8.2, RBC 5.25, Hgb 15.8, Hct 45.7, MCV 87.1, MCH 30.2, MCHC 34.7, RDW 13.2, Plt Count 248, MPV 7.2 L, Neut % (Auto) 65.3, Lymph % (Auto) 25.6, [place] % (Auto) 5.5, Eos % (Auto) 2.1, Baso % (Auto) 1.6, Neut # (Auto) 5.3, Lymph # (Auto) 2.1, [place] # (Auto) 0.5, Eos # (Auto) 0.2, Baso # (Auto) 0.1 09/29/21 13:08: Sodium 137, Potassium 3.9, Chloride 106, Carbon Dioxide 24, Anion Gap 10
[2021-09-30 17:26] LABS: Hemoglobin A1C 5.5 % (4.0-6.0)
== END 2021-09-29 16:30 | disposition home or self-care (01) ==
PROVIDERS: Nurse Practitioner Family; Emergency Provider Student in an Organized Health Care Education/Training Program; PCP Family Medicine
DX: I10 Essential (primary) hypertension (principal)
CPT/HCPCS: 80053; 83036; 84443; 84484; 85025; 93005; 96365; 99284

== ENCOUNTER 2021-09-30 17:17 | Observation (INO) | payer BC, MEDICARE, SELFPAY ==
--- NOTE | 2021-09-30 17:46 | PC.NURSE ---
Pt arrived to the floor at this time
--- NOTE | 2021-09-30 17:51 | XR_ITS ---
PROCEDURE INFORMATION: Exam: XR Chest Exam date and time: 09/30/2021 6:02 PM Age: 65 years old Clinical indication: Patient HX: Shortness of breath, dizziness/syncopy, elevated blood pressure. Started new blood pressure medication last week. TECHNIQUE: Imaging protocol: Radiologic exam of the chest. Views: 2 views. COMPARISON: CR CXR2V XR chest 2V 06/06/2018 4:15 PM FINDINGS: Lungs: Unremarkable. No consolidation. Pleural spaces: Unremarkable. No pleural effusion. No pneumothorax. Heart/Mediastinum: Unremarkable. No cardiomegaly. Vasculature: Vascular calcifications. Bones/joints: Unremarkable. IMPRESSION: No acute findings.
--- NOTE | 2021-09-30 17:57 | CT_ITS ---
PROCEDURE INFORMATION: Exam: CT Head Without Contrast Exam date and time: 09/30/2021 6:12 PM Age: 65 years old Clinical indication: Dizziness and syncope and collapse; Additional info: Dizziness/syncope, elevated blood pressure, started a new blood pressure medication last week. TECHNIQUE: Imaging protocol: Computed tomography of the head without contrast. Radiation optimization: All CT scans at this facility use at least one of these dose optimization techniques: automated exposure control; mA and/or kV adjustment per patient size (includes targeted exams where dose is matched to clinical indication); or iterative reconstruction. COMPARISON: No relevant prior studies available. FINDINGS: Brain: Mild chronic brain volume loss and chronic small vessel ischemic changes. Cerebral ventricles: No ventriculomegaly. Paranasal sinuses: Visualized sinuses are unremarkable. No fluid levels. Mastoid air cells: Visualized mastoid air cells are well aerated. Orbital cavities: Chronic appearing left orbital medial wall fracture. Bones/joints: Unremarkable. No acute fracture. Soft tissues: Unremarkable. IMPRESSION: No acute intracranial findings.
[2021-09-30 17:58] VITALS: BMI 29.2
[2021-09-30 17:59] VITALS: BP 164/76; PULSE 77; RESP 19; TEMP 36.6; O2SAT 99
--- NOTE | 2021-09-30 18:26 | HMH.HP ---
*Admission Date: 09/30/21 *Chief complaint: syncope, dizziness, fatigue *History of present illness: Mr. Castanon is a pleasant 65 year old male with no h/o preventative healthcare presented to PCP office to establish care for ED FU on near-syncopal event that occurred yesterday. In the ED, CBC and CMP unremarkable with exception of glucose 168. A1c added, noted at 5.5. Trop negative, EKG without acute ischemia. B/p elevated. Further reported 2 other syncopal events in the last 6 months, most recently on the 08 of September. Events accompanied by dizziness and tunnel vision, no chest pain, palpitations or shortness of breath. No loss or bowel or bladder function. Returned to baseline upon awakening. Long history of tobacco use, decreased significantly since 09/08 event. Shortness of breath and fatigue with exertion. No cough or hemoptysis. He has had interrmittent chest discomfort the last week, exertional in nature but he contributes this to using a christian hammer at work 1-2 weeks ago. Today, patient reports he went to work, stopped after 3 hours due to fatigue. C/o seeing floaters, feels dizzy at times intermittently. B/p in office 180/108. Carotid bruits noted on exam. Patient was direct admitted for cardiac monitoring, serial enzymes, echo/carotid us, blood pressure management and further evaluation. [facility] History I have reviewed the patient's past medical history: Yes Medical History: Reports:: Gastroesophageal Reflux Disease(GERD) Denies:: Cerebrovascular Accident, Diabetes Mellitus Type 1, Diabetes Mellitus Type 2, Internal Pacemaker, Lung Disease, Seizures *Have you ever received a pneumonia vaccine?: No *Have you received a flu vaccine this season?: No Other Medical History: Denies: Blood Transfusion Reaction Laterality Cases: Bilateral: Tonsillectomy Other Surgeries: Yes: Hernia Repair. No: Pacemaker - *Social History Smoking Status: Current every day smoker Tobacco Type: cigarettes # Packs/Day (cigarettes): 1 Alcohol Intake: current Alcohol Intake Frequency:: other Substance Use Type: denies use *Occupational Status:: employed Housing: house *Travel in the last 8 weeks: None Family Hx:: Cancer Review of Systems - Review of Systems Review of systems:: pertinent systems reviewed and negative unless documented below - Constitutional Reports fatigue - Eyes Reports floaters - *Cardiovascular Reports chest pain, Reports shortness of breath with activity - *Respiratory Reports shortness of breath with activity - *Musculoskeletal Reports joint pain Comments: bilateral shoulders - *Neurologic Reports dizziness, Reports fainting Meds Home Medications Medication Instructions Recorded Confirmed Type polyethylene glycoL 3350 [Miralax 17 gm PO DAILY 06/29/18 06/29/18 History Powder] Ondansetron [Zofran 4mg ODT] 4 mg PO Q8HP PRN #20 tab.rapdis 08/06/20 Rx lisinopriL [Lisinopril] 10 mg PO DAILY 30 Days #30 tab 09/29/21 Rx Allergies Allergy/AdvReac Type Severity Reaction Status Date / Time No Known Drug Allergies Allergy Unknown Unknown Verified 06/29/18 11:14 allergy reaction Exam Vital signs and Labs for Last 24 Hours: Temp Pulse Resp BP Pulse Ox 97.8 F 77 19 164/76 H 99 09/30/21 17:59 09/30/21 17:59 09/30/21 17:59 09/30/21 17:59 09/30/21 17:59 I & O for Last 24 hours: Intake & Output 09/28/21 09/29/21 09/30/21 10/01/21 11:59 11:59 11:59 11:59 Weight 215 lb 8 oz - *Routine HEENT Exam Head: Present: normocephalic Eye: Present: EOMI, PERRL ENT: Present: mucous membranes moist - *Routine Neck Exam Present: supple, carotid bruit - *Routine Respiratory Exam Present: CTA bilaterally - *Routine Cardiovascular Exam Present: RRR, Normal S1, Normal S2 - *Routine Abdominal Exam Present: soft, normoactive bowel sounds - *Routine Rectal Exam Rectal:: deferred - *Routine Genitalia Exam Genitalia:: deferred - *Routine Extremities Exam Present: n
[2021-09-30 20:00] VITALS: BP 169/89; PULSE 81; PULSE 87; RESP 16; TEMP 36.7; O2SAT 98
[2021-09-30 20:29] LABS: Coronavirus 19, PCR Not Detected (NotDetected); Influenza A, PCR Not Detected (NotDetected); Influenza B, PCR Not Detected (NotDetected)
[2021-09-30 21:04] LABS: Troponin I < 0.01 ng/ml (0.00-0.034)
[2021-09-30 23:36] VITALS: BP 138/79; PULSE 63; RESP 18; TEMP 36.6; O2SAT 97
[2021-09-30 23:37] LABS: Troponin I < 0.01 ng/ml (0.00-0.034)
[2021-10-01] VITALS: PULSE 60
[2021-10-01 03:37] VITALS: BP 150/88; PULSE 62; RESP 16; TEMP 36.7; O2SAT 98
[2021-10-01 04:00] VITALS: PULSE 70
[2021-10-01 04:56] VITALS: BMI 28.9
--- NOTE | 2021-10-01 05:06 | PC.NURSE ---
Pt a+o x4. Pt has not voiced any dizziness/syncopal episodes t/o shift. Pt did c/o of a GOLD in the back of his head x1. Tylenol administered per MAY. Pt calls out and walks to bathroom independently, standby assist for precaution. Call light within reach.
[2021-10-01 07:27] LABS: Chol/HDL Ratio 7.5 (1-3.5); Cholesterol 217 mg/dl (140-200); HDL Cholesterol 29 mg/dl (40-60); Triglycerides 79 mg/dl (30-150); VLDL Cholesterol 16 mg/dL (0-40)
[2021-10-01 07:32] VITALS: BP 141/83; PULSE 64; RESP 18; TEMP 36.7; O2SAT 98
[2021-10-01 07:38] LABS: Direct LDL Cholesterol 154.44 mg/dL (100-129)
[2021-10-01 07:43] LABS: Basophils # 0.1 K/mm3 (0-0.2); Basophils % 1.6 % (0.1-2.0); Eosinophils # 0.3 K/mm3 (0.0-0.4); Eosinophils % 3.7 % (0.1-12.0); Hematocrit 44.7 % (42.0-52.0); Hemoglobin 15.6 g/dL (14.1-18.0); Lymphocytes # 2.1 K/mm3 (0.7-4.5); Lymphocytes % 29.8 % (10-50); Mean Corpuscular HGB Conc 34.8 g/dL (31.8-35.4); Mean Corpuscular Hemoglobin 30.4 pg (27.0-31.2); Mean Corpuscular Volume 87.5 fl (80-94); Mean Platelet Volume 7.3 fl (7.4-10.4); Monocytes # 0.6 K/mm3 (0.1-1.0); Monocytes % 8.3 % (1.7-9.3); Neutrophils % 56.6 % (37.0-80.0); Platelet Count 226 K/mm3 (142-424); Red Blood Count 5.11 M/mm3 (4.60-6.20); Red Cell Distribution Width 13.2 % (11.5-17.5); White Blood Count 7.1 K/mm3 (4.8-10.8)
[2021-10-01 07:47] LABS: Alanine Aminotransferase 20 U/L (12-78); Albumin Level 3.7 g/dl (3.5-5.0); Albumin/Globulin Ratio 1.5 (1.1-1.8); Alkaline Phosphatase 59 U/L (38-126); Anion Gap 7.5 mEq/L (5-15); Aspartate Amino Transferase 23 U/L (17-59); Bilirubin,Total 0.6 mg/dl (0.2-1.3); Blood Urea Nitrogen 14 mg/dl (9-20); Carbon Dioxide 27 mmol/L (22.0-30.0); Chloride 106 mmol/L (98-107); Creatinine Clearance Estimated 101 mL/min (50-200); Estimated Glomerular Filt Rate 97 ml/min (>60); GFR (African American) 117 ML/MIN (>60); Globulin 2.4 g/dL (1.3-3.2); Glucose 93 mg/dl (74-100); Potassium 4.5 mmoL/L (3.5-5.1); Sodium 136 mmol/L (136-145); Total Protein,Serum 6.1 g/dl (6.3-8.2)
[2021-10-01 08:00] VITALS: PULSE 70
--- NOTE | 2021-10-01 08:35 | HMH.DCSUM ---
General - General Admission date:: 09/30/21 Discharge date: 10/01/21 HPI HPI: Mr. Castanon is a pleasant 65 year old male with no h/o preventative healthcare presented to PCP office to establish care for ED FU on near-syncopal event that occurred yesterday. In the ED, CBC and CMP unremarkable with exception of glucose 168. A1c added, noted at 5.5. Trop negative, EKG without acute ischemia. B/p elevated. Further reported 2 other syncopal events in the last 6 months, most recently on the 08 of September. Events accompanied by dizziness and tunnel vision, no chest pain, palpitations or shortness of breath. No loss or bowel or bladder function. Returned to baseline upon awakening. Long history of tobacco use, decreased significantly since 09/08 event. Shortness of breath and fatigue with exertion. No cough or hemoptysis. He has had interrmittent chest discomfort the last week, exertional in nature but he contributes this to using a christian hammer at work 1-2 weeks ago. Today, patient reports he went to work, stopped after 3 hours due to fatigue. C/o seeing floaters, feels dizzy at times intermittently. B/p in office 180/108. Carotid bruits noted on exam. Patient was direct admitted for cardiac monitoring, serial enzymes, echo/carotid us, blood pressure management and further evaluation. Hospital Course Hospital Course: Patient was admitted. Laboratory studies were unrevealing for causes of syncope. Blood pressure was monitored during his hospital stay and a bus driver/monitor was placed which also revealed no evidence of causes of syncope. Echocardiogram showed EF 55% and good ventilation with no valvular abnormalities that would have caused syncopal issues. However, his carotid Doppler testing showed a significant right ICA stenosis of 75 to 90%. Patient did well overnight and this morning feels good. Plan we did discharge home with aspirin, blood pressure control and high-dose statin. He has been off cigarettes for for 5 days and I have counseled him on the absolute necessity of stopping smoking to prevent further worsening of his plaque and worsening changes of plaque rupture. We will schedule a CTA in the next couple of days and urgent appointment with vascular surgery in [place] for definitive therapy of this lesion. Will see him in our office next week. I discussed with him the importance of hydration, syncopal precautions and avoiding lifting and straining. I have asked him to monitor his blood pressure and if his blood pressure goes below 130 to let me know so we can cut back on his blood pressure medicine as had like him to keep his systolic pressure above 135 to encourage cerebral flow. Objective Vital signs: Temp Pulse Resp BP Pulse Ox 98.1 F 64 18 141/83 H 98 10/01/21 07:32 10/01/21 07:32 10/01/21 07:32 10/01/21 07:32 10/01/21 07:32 no acute distress - *Routine HEENT Exam Head: Present: normocephalic Eye: Present: EOMI, PERRL ENT: Present: mucous membranes moist - *Routine Neck Exam Present: supple - *Routine Respiratory Exam Present: CTA bilaterally - *Routine Cardiovascular Exam Present: RRR - *Routine Abdominal Exam Present: soft, normoactive bowel sounds. Absent: tenderness - *Routine Extremities Exam Absent: cyanosis, clubbing, edema - *Routine Skin Exam Present: warm. Absent: rash - Detailed Eye Exam Eyelids: Bilateral normal inspection Results Labs on day of discharge: Labs from last 24 hours 10/01/21 10/01/21 10/01/21 06:16 06:16 06:16 WBC 7.1 RBC 5.11 Hgb 15.6 Hct 44.7 MCV 87.5 MCH 30.4 MCHC 34.8 RDW 13.2 Plt Count 226 MPV 7.3 L Neut % (Auto) 56.6 Lymph % (Auto) 29.8 [place] % (Auto) 8.3 Eos % (Auto) 3.7 Baso % (Auto) 1.6 Neut # (Auto) 4.0 Lymph # (Auto) 2.1 [place] # (Auto) 0.6 Eos # (Auto) 0.3 Baso # (Auto) 0.1 Sodium 136 Potassium 4.5 Chloride 106 Carbon Dioxide 27 Anion G
--- NOTE | 2021-10-01 09:36 | HMH.PHAINT ---
DISCHARGE MEDICATION COUNSELING PROVIDED. DISCUSSED THE FOLLOWING: -STOP THE LISINOPRIL 10 MG DAILY PRESCRIPTION -START LISINOPRIL 10 MG TWICE DAILY (CAN USE UP THE REMAINING 10 MG DAILY TABS AND TAKE THOSE TWICE DAILY, WATCH FOR DIZZINESS, LIGHTHEADEDNESS) -ASPIRIN 81 MG (FOR HEART, DAILY, BLEED/BRUISE RISK, BLEED LOCATION WILL CHANGE APPEARANCE) -ATORVASTATIN (FOR CHOLESTEROL, TAKE AT BEDTIME, WATCH FOR MUSCLE PAIN OR WEAKNESS) PATIENT ENDORSED NO QUESTIONS AT THIS TIME.
--- NOTE | 2021-10-01 17:59 | CA_ITS ---
FINAL REPORT TECHNIQUE: Real-time imaging was performed of the extracranial carotid arteries in transverse and longitudinal planes, with color duplex evaluation of blood flow velocity. Spectral analysis was performed. The cervical vertebral arteries were also examined. CLINICAL HISTORY: bilateral bruit, dizziness, syncope, HTN, smoker FINDINGS: NASCET technique is utilized for stenosis evaluation. Right carotid system (centimeters/second): CCA: 98 centimeters/second ICA: 265 centimeters/sec Vertebral artery: Antegrade ICA/CCA ratio: 3.4 Mild plaque is identified at the bifurcation. Left carotid system (centimeters/second): CCA: 95 centimeters/second ICA: 174 centimeters/second Vertebral artery: Antegrade ICA/CCA ratio: 1.8 Mild plaque is identified at the bifurcation. IMPRESSION: 70-99 % right ICA stenosis. Consider CTA. Less than 50 % left ICA stenosis. Reviewed, Interpreted and Dictated by Rozina Smith MD Transcribed by Mirna Chaves Authenticated and [facility]
--- NOTE | 2021-10-01 17:59 | CA_ITS ---
APPROVED REPORT EXAM: Comprehensive 2D, Doppler, and color-flow Echocardiogram Survey Field Technician: Faby Thompson CRT Ht: 6 ft 0 in Wt: 215lbs BSA: 2.20 BP: 164/76 mmHg Indications: Near Syncope, Hypertension/HDD, smoker, gerd 2D Dimensions LVOT 1.97 cm (M/F) 1.5-2.5 M-Mode Dimensions RVDd 1.98 cm (0.9-2.6) LA Diam 3.36 cm (1.9-4.0) LVDd 5.14 cm (3.5-5.7) Ao Diam 3.80 cm (2.0-3.7) LVDs 3.38 cm (3.5-5.7) IVSd 1.55 cm (0.6-1.1) PWd 0.79 cm (0.6-1.1) EF (Teich) 62.90% FS 34.20% EDV (Teich) 126.10 mL TAPSE 2.78 (<1.7) ESV (Teich) 46.80 mL LV Diastology E Decel Time 200.00 (160-240 msec) E/A Ratio 1.02 MED E' 7.20 (< 7 cm/sec) MED A' 11.10 cm/s E'/MED E' Ratio 10.56 (>14) LAT E' 7.30 (<10 cm/sec) LAT A' 11.40 cm/s E/LAT E' Ratio 10.41 (>14) Aortic Valve AO Peak GR. 6.30 mmHg Mitral Valve MV A Velocity 74.00 (40-130 cm/s) E/A Ratio 1.02 MV Decel. Time 200.00 (160-240 ms) Pulmonary Valve PV Peak Velocity 123.00 (50-150 cm/s) Tricuspid Valve TR P. Velocity 207.00 cm/s RAP Estimate 10.00 mmHg RVSP 27.10 mmHg Left Ventricle Left atrium is mildly enlarged, left ventricle is normal size mild concentric left ventricular hypertrophy, estimated ejection fraction 55% with no regional wall motion abnormality, grade 1 diastolic dysfunction seen without tissue Doppler evidence of raise left atrial pressure. Right Ventricle Right atrium and right ventricle are mildly enlarged with normal contractility. Aortic Valve Aortic valve is thickened and calcified without aortic stenosis or aortic insufficiency. Mitral Valve Mitral valve grossly normal, there is trace mitral regurgitation. Tricuspid Valve Tricuspid grossly normal, there is trace tricuspid regurgitation, tricuspid regurgitation jet velocity is inadequate for calculation of the right ventricular systolic pressure. Pulmonic Valve Pulmonic valve is poorly visualized. Great Vessels Aortic root is normal size. Inferior vena cava is poorly visualized. Pericardium No significant pericardial effusion noted. Conclusion 1. Biatrial enlargement, normal left ventricular size, mild concentric left ventricular hypertrophy, estimated ejection fraction 55% with no regional wall motion abnormality, grade 1 diastolic dysfunction seen without tissue Doppler evidence of raise left atrial pressure. 2. Thickened and calcified aortic valve without aortic stenosis or aortic insufficiency. 3. Trace mitral and tricuspid regurgitation. 4. No significant pericardial effusion noted. 5. Inferior vena cava is poorly visualized. Electronically signed by : Chan Agudelo MD 10/01/2021 18:59:40
--- NOTE | 2021-10-02 10:57 | CARE MANAGER ---
Patient returned phone call. We discussed how he was feeling since discharge. He states he had a headache this morning, but it is better. He picked up his medications and is aware of follow up appointments. Discussed monitoring blood pressure if headache occurs again. Denies any questions or concerns. LAURA Magallanes
== END 2021-10-01 09:47 | disposition home or self-care (01) ==
PROVIDERS: Internal Medicine Adolescent Medicine; Admitting Provider Internal Medicine Adolescent Medicine; PCP Internal Medicine Adolescent Medicine; Referring Provider Nurse Practitioner Family; Visit Provider Internal Medicine Adolescent Medicine
DX: R55 Syncope and collapse (principal); K21.9 Gastro-esophageal reflux disease without esophagitis; F17.210 Nicotine dependence, cigarettes, uncomplicated; H43.393 Other vitreous opacities, bilateral; I10 Essential (primary) hypertension; I65.21 Occlusion and stenosis of right carotid artery; Z20.822 Contact with and (suspected) exposure to COVID-19
CPT/HCPCS: 36415; 70450; 71046; 80053; 80061; 84484; 85025; 93306; 93880; C9803; G0378; U0003; U0005

== ENCOUNTER → 2021-10-06 08:47 | Outpatient (CLI) | payer BC, MEDICARE, SELFPAY ==
--- NOTE | 2021-10-06 08:57 | CT_ITS ---
FINAL REPORT TECHNIQUE: Thin section axial CT with IV contrast supplemented with multiplanar reconstruction under CT angiogram protocol. This study was performed with techniques to keep radiation doses as low as reasonably achievable (ALARA). Individualized dose reduction techniques using automated exposure control or adjustment of mA and/or kV according to the patient''s size were employed. NASCET criteria was utilized during interpretation. CLINICAL HISTORY: .RIGHT SIDED CAROTID STENOSIS, DIZZINESS, SYNCOPE FINDINGS: Aortic arch: Arch shows no significant narrowing. Great vessel origins are widely patent. Right carotid: There is approximately 30% stenosis of the proximal right ICA. Left carotid: There is approximately 20% stenosis of the proximal left ICA. Vertebral: The vertebral arteries are codominant. No significant stenosis is present. IMPRESSION: Approximately 30% stenosis of the proximal right ICA with 20% stenosis of the proximal left ICA. Reviewed, Interpreted and Dictated by Sanjiv Eubanks III, MD Transcribed by Hadley Rodriguez Authenticated and [facility]
--- NOTE | 2021-10-06 08:57 | CT_ITS ---
FINAL REPORT TECHNIQUE: Thin section axial CT with IV contrast supplemented with multiplanar reconstruction under CT angiogram protocol. 3-D reconstructions were performed. This study was performed with techniques to keep radiation doses as low as reasonably achievable (ALARA). Individualized dose reduction techniques using automated exposure control or adjustment of mA and/or kV according to the patient''s size were employed. CLINICAL HISTORY: RIGHT SIDED CAROTOID STENOSIS, DIZZINESS, SYNCOPE FINDINGS: No aneurysm is seen. Major intracranial vessels are patent without significant stenosis. IMPRESSION: No aneurysm is seen. Major intracranial vessels are patent without significant stenosis. Reviewed, Interpreted and Dictated by Sanjiv Eubanks III, MD Transcribed by Hadley Rodriguez Authenticated and [facility]
== END ==
PROVIDERS: PCP Internal Medicine Adolescent Medicine; Visit Provider Internal Medicine Adolescent Medicine
DX: I65.21 Occlusion and stenosis of right carotid artery (principal)
CPT/HCPCS: 70496; 70498; Q9967

== ENCOUNTER 2023-05-12 18:41 | Emergency (ER) | payer MEDICARE, SELFPAY ==
[2023-05-12 18:45] VITALS: BP 144/87; PULSE 95; RESP 18; TEMP 36.5; O2SAT 96; BMI 29.8
--- NOTE | 2023-05-12 19:05 | XR_ITS ---
PROCEDURE INFORMATION: Exam: XR Left Tibia and Fibula Exam date and time: 05/12/2023 7:31 PM Age: 67 years old Clinical indication: Injury or trauma; Fall; Blunt trauma; Lower leg; Left; Additional info: Fall, pain, nwb, can't extend knee TECHNIQUE: Imaging protocol: Radiologic exam of the left tibia and fibula. Views: 2 views. COMPARISON: CR XR KNEE LT 3V 05/12/2023 7:29 PM FINDINGS: Bones/joints: Intermediate sized enthesophytes involving the calcaneus at the plantar fascia insertion. No evidence of acute osseous abnormality. Soft tissues: See Bones/joints finding. IMPRESSION: No acute findings.
--- NOTE | 2023-05-12 19:05 | XR_ITS ---
PROCEDURE INFORMATION: Exam: XR Left Hip Exam date and time: 05/12/2023 7:25 PM Age: 67 years old Clinical indication: Injury or trauma; Fall; Blunt trauma (contusions or hematomas); Left; Hip; Additional info: Fall, pain, nwb, can't extend knee TECHNIQUE: Imaging protocol: Radiologic exam of the left hip. Views: 2 or 3 views hip with pelvis when performed. COMPARISON: ABDPELW CT abdomen pelvis w con 06/28/2018 9:36 AM FINDINGS: Bones/joints: Moderate osteophytosis and degenerative changes involve the left femoroacetabular joint with CAM type contours of the femoral neck. No evidence of acute osseous abnormality. Soft tissues: Unremarkable. IMPRESSION: Moderate osteophytosis and degenerative changes involve the left femoroacetabular joint with CAM type contours of the femoral neck.
--- NOTE | 2023-05-12 19:05 | XR_ITS ---
PROCEDURE INFORMATION: Exam: XR Left Knee Exam date and time: 05/12/2023 7:29 PM Age: 67 years old Clinical indication: Pain; Knee; Left; Additional info: Fall, pain, nwb, can't extend knee TECHNIQUE: Imaging protocol: Radiologic exam of the left knee. Views: 3 views. COMPARISON: CR XR FEMUR LT 2V 05/12/2023 7:28 PM FINDINGS: Bones/joints: Moderate osteophytosis and degenerative changes involve the 3 compartments of the left knee. Intermediate sized enthesophytes involving the inferior pole of patella. Anterior to the femoral metaphysis is a 8.6 mm calcific density which may represent an avulsion fracture of the extensor mechanism. Intermediate sized enthesophytes involving the inferior pole of patella. Soft tissues: See Bones/joints finding. IMPRESSION: Anterior to the femoral metaphysis is a 8.6 mm calcific density which may represent an avulsion fracture of the extensor mechanism.
--- NOTE | 2023-05-12 19:05 | XR_ITS ---
PROCEDURE INFORMATION: Exam: XR Left Femur Exam date and time: 05/12/2023 7:28 PM Age: 67 years old Clinical indication: Injury or trauma; Fall; Blunt trauma; Thigh or upper leg; Left; Additional info: Fall, pain, nwb, can't extend knee TECHNIQUE: Imaging protocol: Radiologic exam of the left femur. Views: 2 views. COMPARISON: CR XR HIP LT 2-3V W/PELVIS 05/12/2023 7:25 PM FINDINGS: Bones/joints: Moderate osteophytosis and degenerative changes involve the 3 compartments of the left knee. Intermediate sized enthesophytes involving the inferior pole of patella. Anterior to the femoral metaphysis is a 8.6 mm calcific density which may represent an avulsion fracture of the extensor mechanism. Soft tissues: See Bones/joints finding. IMPRESSION: Anterior to the femoral metaphysis is a 8.6 mm calcific density which may represent an avulsion fracture of the extensor mechanism.
--- NOTE | 2023-05-12 19:15 | ED_ITS ---
Discharge Plan Disposition Patient Disposition: Home, Self-Care Condition: Good Prescriptions Prescriptions: No Action polyethylene glycol 3350 119 GM powder 17 gm PO DAILY ondansetron 4 MG tablet,disintegrating 4 mg PO Q8HP PRN (Reason: Nausea) Qty: 20 0RF lisinopril 10 MG tablet 10 mg PO BID Qty: 60 0RF atorvastatin 80 MG tablet 80 mg PO HS Qty: 30 0RF aspirin 81 MG tablet,chewable 81 mg PO DAILY Qty: 30 0RF Referrals Follow up/Referrals: Hugo Smith DO [Staff Physician] - See instructions Delano Rodriguez MD [Primary Care Provider] - See instructions Activity Restrictions/Add. Instructions Additional Instructions/Restrictions: You were evaluated in the emergency department today. Please keep the knee immobilizer on. You may bear weight on your left leg, however it must be in extension. Do not bear weight on a bent or flexed left knee. Use crutches as needed for support. 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 Do not drive or operate heavy machinery. Follow-up outpatient with orthopedics soon as possible. We have provided you with information for Dr. Smith. Knee immobilizer puts you at high risk for DVT. You are already on oral aspirin. Please continue taking this. Return to the emergency department for new or worsening symptoms, such as leg skin Discoloration, significant worsening leg swelling, calf pain, or other concerns. Clinical Impressions Clinical Impression: Injury of quadriceps tendon, Avulsion fracture Instructions Patient Instructions: How to Use a Knee Immobilizer Discharge ED Provider: Hannah Goddard General Adult HPI General Chief complaint: Extremity Injury, Lower Stated complaint: [id number] fall LT leg inj Time Seen by Provider: 05/12/23 19:04 Mode of Arrival: Wheelchair Source of Information: Patient Limitations: No Limitations Description of Symptoms (Recalled from ER Triage Doc. by RN): c/o left upper leg pain with limited weight bearing. Pt states about 30 minutes prior to arrival was going down a little embankment when he fell causing his leg he thinks to hyper extend. History of Present Illness HPI narrative: This patient is a 67-year-old male with a history of hypertension, hyperlipidemia, and obesity presenting to the emergency department for evaluation with concern for left lower extremity injury. Patient reports that he slipped while walking and believes that he hyperextended his left leg somehow. He has not been able to bear weigh on his left leg since. His pain is just above his left knee. He states that he cannot extend his knee or straight leg raise his left leg. No head injury, loss of consciousness, or other injury noted. No back pain, saddle anesthesia, numbness, tingling, or other issues. Related Data Home Medications Medication Instructions Recorded Confirmed polyethylene glycol 3350 17 17 gm PO DAILY CONSTIPATION 06/29/18 09/30/21 gram/dose oral powder Previous Rx's Medication Instructions Recorded ondansetron 4 mg disintegrating 4 mg PO Q8HP PRN Nausea ##20 08/06/20 tablet aspirin 81 mg chewable tablet 81 mg PO DAILY #30 tabs 10/01/21 atorvastatin 80 mg tablet 80 mg PO HS #30 tabs 10/01/21 lisinopril 10 mg tablet 10 mg PO BID #60 tabs 10/01/21 Allergies Allergy/AdvReac Type Severity Reaction Status Date / Time No Known Drug Allergies Allergy Unknown Unknown Verified 06/29/18 11:14 allergy reaction [facility] Disclaimer: The information contained in this section may have been updated after the patient was seen, as this information can be updated by other users. Social History Smoking Status: Former smoker tobacco type: cigarettes packs per day: 1 alcohol intake: never substance use type: denies use current occupational status: employed Travel in the last 8 weeks: None household members: spouse housing: house caffeine: No ROS Obtained: Yes All systems reviewed & no additional complaints except as documented Physical Exam General General appearance: alert and in no apparent distress Head Head exam: atraumatic and normocephalic Eye Eye exam: Present normal appearance, PERRL and EOMI ENT ENT exam: Present normal exam, normal oropharynx, mucous membranes moist and normal external ear exam Neck Neck exam: Present normal inspection, full ROM and trachea midline; Absent tenderness Chest Chest inspection: Present normal inspection and symmetric chest wall rise; Absent tenderness Respiratory Respiratory exam: Present normal lung sounds bilaterally; Absent respiratory distress, wheezes, stridor or accessory muscle use Cardiovascular Cardiovascular exam: Present regular rate and normal rhythm Abdominal Exam Abdominal exam: Present soft; Absent distention, tenderness or guarding Extremities Exam Extremities exam: Present full ROM, tenderness (TTP above L knee with irregularity of quadriceps tendon), normal capillary refill and other (Inability to SLR L leg/extend knee actively. Passive ROM intact. Neurovascularly intact distally.); Absent edema Back Exam Back exam: Present normal inspection and full ROM; Absent tenderness Neurological Exam Neurological exam: Present alert, oriented X3, CN II-XII intact and normal gait; Absent motor sensory deficit Psychiatric Psychiatric exam: Present normal affect and normal mood Skin Skin exam: Present warm and dry Medical Decision Making Medical Records Medical records reviewed: Yes I reviewed the patient's medical records. Ren Inquiry Pt receiving controlled substance: Yes Ren was queried for this patient: Yes Risks and benefits of using a controlled substance: were discussed with pt by me Vital Signs: 05/12/23 18:45 05/12/23 20:02 05/12/23 20:59 Temperature 97.7 F 98 F Temperature Source Oral Oral Pulse Rate 88 83 Pulse Rate [Left Radial] 95 H Respiratory Rate 18 18 Blood Pressure 158/101 H 144/94 H Blood Pressure [Right Arm] 144/87 H Blood Pressure Mean [Right Arm] 106 Blood Pressure Source Automatic Cuff Blood Pressure Source [Right Arm] Automatic Cuff Blood Pressure Position Sitting Blood Pressure Position [Right Arm] Sitting 02 Sat by Pulse Oximetry 96 96 Oxygen Delivery Method Room Air Room Air Lab Data Lab results reviewed: Yes I reviewed the patient's lab results. Orders (Tests/Meds): ED MEDICATIONS Discontinued Medications Generic Name Dose Route Start Last Admin Trade Name Jonatanq PRN Reason Stop Dose Admin Acetaminophen 1,000 mg 05/12/23 19:05 05/12/23 19:27 Acetaminophen 500mg Tab PO 05/12/23 19:06 1,000 mg ONCE ONE Administration Ibuprofen 800 mg 05/12/23 19:05 05/12/23 19:29 Ibuprofen 400 Mg Tablet PO 05/12/23 19:06 800 mg ONCE ONE Administration Ondansetron HCl 4 mg 05/12/23 19:06 05/12/23 19:26 Ondansetron 4mg Odt SL 05/12/23 19:07 4 mg ONCE ONE Administration Oxycodone HCl 5 mg 05/12/23 19:05 05/12/23 19:30 Oxycodone 5mg Immediate Release Tablet PO 05/12/23 19:06 5 mg ONCE ONE Administration Tramadol HCl 1 packet 05/12/23 20:51 05/12/23 20:55 Tramadol 50mg Tab Take Home Pack (10) PO 05/12/23 20:52 1 packet ONCE ONE Administration ORDERS Category Date Time Status XR femur LT 2V Stat Exams 05/12/23 19:05 Completed XR hip LT 2-3V w/pelvis Stat Exams 05/12/23 19:05 Completed XR knee LT 3V Stat Exams 05/12/23 19:05 Completed XR tibia fibula LT 2V Stat Exams 05/12/23 19:05 Completed Medical Decision Narrative: In summary, this patient is a 67-year-old male presenting to the Emergency Department for evaluation of left leg injury after mechanical ground-level fall. Differential diagnoses considered include but are not limited to quadriceps tendon rupture, fracture, contusion, musculoskeletal strain/pain, ligamentous knee injury. Ruling out the most morbid conditions drove assessment. On exam, the patient is neurovascularly intact but does have irregularity of his quadriceps tendon and inability to extend his knee actively. Workup included x- rays of the left hip/pelvis, femur, knee, and tib-fib. He was given oral oxycodone, Tylenol, ibuprofen, and Zofran. I independently interpreted x-ray prior to the radiologist read and noted concern for possible avulsion fracture of the left knee. Please see their read for final interpretation. I am concerned that the patient has avulsed his left knee extensor tendon attachment. Given this, I had an interactive discussion with Dr. Smith with orthopedics who advised knee immobilization and close outpatient follow-up. Patient was given knee immobilizer and instructions for weightbearing and outpatient follow-up. He is already on oral aspirin. I did advise him that knee immobilizer increases the risk for DVT, and I advised him of symptoms to look out for. He was deemed be appropriate for discharge with close a patient follow-up at this time. He was given strict return precautions, prescription for oral oxycodone to take at home, and he was discharged in stable condition after all questions were answered. Critical Care Critical Care Time Critical Care Time: No
[2023-05-12] MEDS: ONDANSETRON 4MG ODT 4 MG SL (19:26)
[2023-05-12] MEDS: ACETAMINOPHEN 500MG TAB 1000 MG PO (19:27)
[2023-05-12] MEDS: IBUPROFEN 400 MG TABLET 800 MG PO (19:29)
[2023-05-12] MEDS: OXYCODONE 5MG IMMEDIATE RELEASE TABLET 5 MG PO (19:30)
[2023-05-12 20:02] VITALS: BP 158/101; PULSE 88; O2SAT 96
--- NOTE | 2023-05-12 20:28 | PC.NURSE ---
called RAd for disc at this time.
[2023-05-12] MEDS: TRAMADOL 50MG TAB TAKE HOME PACK (10) 1 PACKET PO (20:55)
[2023-05-12 20:59] VITALS: BP 144/94; PULSE 83; RESP 18; TEMP 36.6; O2SAT 95
== END 2023-05-12 20:59 | disposition home or self-care (01) ==
PROVIDERS: Emergency Provider Emergency Medicine; PCP Internal Medicine Adolescent Medicine
DX: S76.109A Unspecified injury of unspecified quadriceps muscle, fascia and tendon, initial encounter (principal); S72.432A Displaced fracture of medial condyle of left femur, initial encounter for closed fracture; W18.30XA Fall on same level, unspecified, initial encounter
CPT/HCPCS: 73502; 73552; 73562; 73590; 99284

== ENCOUNTER 2023-05-18 13:30 | Outpatient (CLI) | payer MEDICARE, SELFPAY ==
--- NOTE | 2023-05-18 13:46 | MR_ITS ---
FINAL REPORT CLINICAL HISTORY: left knee pain FINDINGS: Multiplanar MR imaging of the right knee was performed without contrast. There is a tear of the posterior horn of the medial meniscus. There is a possible tear of the posterior horn of the lateral meniscus. The anterior and posterior cruciate ligaments are intact. The medial collateral ligament and lateral ligamentous complex are intact. There is a high-grade tear of the distal quadriceps tendon. A portion of the tendon appears to remain intact. This is best seen on sagittal T2 image #14. There is extensive soft tissue edema or hemorrhage, greatest at the anterior knee. There is no evidence of fracture. No focal abnormality is identified of the articular cartilage. A moderate sized joint effusion is seen. The musculature is intact. No soft tissue mass or cyst is identified. IMPRESSION: Tear of the posterior horn of the medial meniscus with possible tear of the posterior horn of the lateral meniscus. High-grade tear of the distal quadriceps tendon with extensive subcutaneous edema or hemorrhage, greatest at the anterior knee. A portion of the tendon may remain intact. Reviewed, Interpreted and Dictated by Sanjiv Eubanks III, MD Transcribed by Hermelinda Stratton Authenticated and [facility]
== END 2023-05-18 23:59 ==
LOC: RAD 13:31
PROVIDERS: PCP Internal Medicine Adolescent Medicine; Visit Provider Orthopaedic Surgery
DX: M25.562 Pain in left knee (principal)
CPT/HCPCS: 73721

== ENCOUNTER 2023-05-20 16:16 | Outpatient (RCR) | payer MEDICARE, SELFPAY | END 2023-05-20 17:00 | disposition home or self-care (01) | LOC: PT 16:16 | PROVIDERS: Visit Provider Orthopaedic Surgery | DX: M79.605 Pain in left leg (principal); M25.562 Pain in left knee; S76.102A Unspecified injury of left quadriceps muscle, fascia and tendon, initial encounter | CPT/HCPCS: 97760 ==

== ENCOUNTER 2023-05-21 12:27 | Outpatient (CLI) | payer MEDICARE, SELFPAY ==
--- NOTE | 2023-05-21 12:28 | ECG_ITS ---
APPROVED REPORT Exam: Resting ECG HR:70 bpm ECG Measurements Heart Rate 70 AXES SD 156 P 56 QRSd 113 QRS 72 QT 396 T 38 QTc 417 Conclusion SINUS RHYTHM INCOMPLETE RIGHT BUNDLE BRANCH BLOCK [90+ ms QRS DURATION, TERMINAL R IN V1/V2, 40+ ms S IN I/aVL/V4/V5/V6] O/w normal ECG UNCONFIRMED REPORT Electronically signed by : Delano Rodriguez MD 05/22/2023 09:16:44
--- NOTE | 2023-05-21 12:54 | XR_ITS ---
FINAL REPORT CLINICAL HISTORY: Pre Op, hypertension COMPARISON: 09/30/2021 FINDINGS: Two views of the chest were obtained. The heart size and pulmonary vascularity are within normal limits. The mediastinum is normal. No acute pulmonary abnormality is identified. There is no pneumothorax. The bony thorax is intact. There is a probable loose body in the left subcoracoid region. IMPRESSION: No active cardiopulmonary disease. Reviewed, Interpreted and Dictated by Sanjiv Eubanks III, MD Transcribed by Alondra Welch Authenticated and [facility]
[2023-05-21 13:35] LABS: Basophils # 0.1 K/mm3 (0-0.2); Basophils % 1.6 % (0.1-2.0); Eosinophils # 0.3 K/mm3 (0.0-0.4); Eosinophils % 3.1 % (0.1-12.0); Hematocrit 47.7 % (42.0-52.0); Hemoglobin 15.7 g/dL (14.1-18.0); Lymphocytes # 2.2 K/mm3 (0.7-4.5); Lymphocytes % 26.1 % (10-50); Mean Corpuscular HGB Conc 32.9 g/dL (31.8-35.4); Mean Corpuscular Hemoglobin 30.3 pg (27.0-31.2); Mean Corpuscular Volume 92.1 fl (80-94); Mean Platelet Volume 7.8 fl (7.4-10.4); Monocytes # 0.7 K/mm3 (0.1-1.0); Monocytes % 8.8 % (1.7-9.3); Neutrophils # 5.1 K/mm3 (1.8-7.8); Neutrophils % 60.4 % (37.0-80.0); Platelet Count 387 K/mm3 (142-424); Red Blood Count 5.18 M/mm3 (4.60-6.20); White Blood Count 8.4 K/mm3 (4.8-10.8)
[2023-05-21 14:41] LABS: Alanine Aminotransferase 34 U/L (12-78); Albumin Level 4.5 g/dl (3.5-5.0); Alkaline Phosphatase 62 U/L (38-126); Anion Gap 11.8 mEq/L (5-15); Aspartate Amino Transferase 29 U/L (17-59); Bilirubin,Total 0.9 mg/dl (0.2-1.3); Blood Urea Nitrogen 23 mg/dl (9-20); Calcium 9.3 mg/dl (8.4-10.2); Carbon Dioxide 30 mmol/L (22.0-30.0); Chloride 98 mmol/L (98-107); Estimated Glomerular Filt Rate 75 ml/min (>60); GFR (African American) 90 ML/MIN (>60); Globulin 2.2 g/dL (1.3-3.2); Glucose 91 mg/dl (74-100); Potassium 3.8 mmoL/L (3.5-5.1); Sodium 136 mmol/L (136-145); Total Protein,Serum 6.7 g/dl (6.3-8.2)
== END 2023-05-21 23:59 ==
LOC: LAB 12:28
PROVIDERS: PCP Internal Medicine Adolescent Medicine; Visit Provider Orthopaedic Surgery
DX: Z01.818 Encounter for other preprocedural examination (principal); S76.109A Unspecified injury of unspecified quadriceps muscle, fascia and tendon, initial encounter
CPT/HCPCS: 36415; 71046; 80053; 85025; 93005

== ENCOUNTER 2023-05-28 07:58 | Day surgery (SDC) | payer MEDICARE, SELFPAY ==
[2023-05-25 17:29] VITALS: BMI 30.5
[2023-05-28] VITALS (11 sets, daily range): BP systolic 102–159; BP diastolic 71–92; PULSE 77–98; RESP 16–18; TEMP 36.4–43; O2SAT 92–100
[2023-05-28] MEDS: LACTATED RINGERS 1000ML 1,000 ML 25 ML IV (08:25)
--- NOTE | 2023-05-28 09:30 | EXP.ANES.CKL ---
[facility] Disclaimer: The information contained in this section may have been updated after the patient was seen, as this information can be updated by other users. Medical History History of hyperlipidemia History of hypertension Surgical History No significant past surgical history Family History Other No significant family history Social History (Updated 05/28/23 @ 08:24 by Shelby Henderson RN) Smoking Status: Former smoker tobacco type: cigarettes packs per day: 1 alcohol intake: never substance use type: denies use current occupational status: employed Travel in the last 8 weeks: None household members: spouse housing: house caffeine: No [facility] Anesthesia Checklist Patient Identification Patient Identification: Arm Band Structural Data Admitted From: Home Planned Operative Procedure/s: Left Quadriceps Tendon Repair Consent for Planned Operative Procedure(s) Verified: Yes Verified Documents: Surgical Consent and History and Physical NPO Status Verified Time NPO: 00:00 Additional verifications Anesthesia Reactions: No Hx Blood Transfusions: No Blood Transfusion Reaction: No Airway Assessment Mallampati Score:: Class II C-Spine Mobility Assessed: Yes TMJ Mobility Assessed: Yes Dentition: Good Dentition Neurological Assessment Level of Consciousness: Awake and Alert Anesthesia Plan Anesthesia Risk discussed: Yes Anesthesia Plan: Verified ASA Class: II Anesthesia Type: General w/block (Left Adductor Canal Nerve Block. Risks/benefits explained. Pt Verbalized understanding)
[2023-05-28] MEDS: CEFAZOLIN SODIUM 2 GM in 0.9 % SODIUM CHLORIDE 100 ML IV (10:30)
--- NOTE | 2023-05-28 11:46 | EXP.OP.NOTE ---
Date of procedure: 05/28/23 Pre-op Diagnosis:: Left quadriceps tendon tear Post-op Diagnosis:: Same Procedure performed:: Open repair left quadriceps tendon Surgeon:: Hugo Smith DO COMPLIANCE VICE PRESIDENT:: Other Anesthesia: GETA and regional Estimated blood loss (mL): 10 Operative findings:: Full-thickness quadriceps tendon tear Operative note:: Patient is identified preoperatively. Left leg marked yes my initials. Underwent a block with anesthesia. Taken the operating room placed upon the operating bed. General anesthesia ministered airway secured. Left lower extremity prepped and draped normal sterile fashion. Once prepped and draped final operative timeout performed to identify proper patient procedure and extremity. Everyone involved the case agreed. No counter indications to beginning. Did receive preoperative antibiotics. Marking pen was used to kristin plan midline incision over the knee. Esmarch was used to exsanguinate the extremity pneumatic tourniquet inflated to 300 mmHg. Skin knife is used to incise through skin careful dissection was taken down to the superior aspect of the patella and over the quadriceps tendon the peritenon was dissected and there was evidence of full-thickness tearing of the quadriceps tendon from the patella. The edges of the quadriceps tendon were cleaned superior pole of the patella cleaned of soft tissue for visualization a modified Krak?w stitch was used to go up medial aspect of the quadriceps tendon and down the lateral aspect of the quadriceps tendon with a fiber tape suture. These 2 free tails came out of the distal aspect of the quadriceps tendon. Attention was then brought to the superior aspect of the patella where the soft tissue was cleared visualization was performed marked with the Bovie and the drill holes were drilled for the 4.75 mm swivel lock anchors these were marked with a marking pen and then each strand medial and lateral were placed into the corresponding holes of the patella and the medial lateral side with 2 swivel locks placed this gave great repair of the quadriceps back to the bone the #2 FiberWire which was inside the swivel lock anchor was then utilized for peritenon repair this gave stable fixation of the quadriceps tendon the knee was flexed and extended without any gapping of the repair. Irrigation of the wound was performed deep layers closed with 0 Vicryl subcutaneous 2-0 Vicryl surgical clips in the skin for closure placement placed in a sterile knee dressing with the extension brace locked in full extension. Patient waken anesthesia taken recovery in stable condition Condition: stable Disposition: PACU Complications:: None apparent
--- NOTE | 2023-05-28 12:08 | P.PNANES_ITS ---
[facility] Anesthesia Record Part I Anesthesia Record I Intake, IV Amount: 1,700 Hydration: Adequate Estimated blood loss (mL): 5 Urine output (mL): 0 Blood Products used (#): none Blood Pressure: 107/82 SaO2: 94 Pulse Rate: 85 Airway Patency: Patent Respiratory Rate: 18 Temperature: 97.5 F Patient is:: Drowsy and Stable Stable to PACU at:: 11:55
[2023-05-28] MEDS: MORPHINE 2MG/ML SYRINGE 1 MG IV (12:25)
[2023-05-28] MEDS: KETOROLAC 30MG/ML VIAL 15 MG IV (12:30)
[2023-05-28] MEDS: HYDROMORPHONE 2MG/ML SYRINGE 0.5 MG IV (12:40)
--- NOTE | 2023-05-28 12:53 | SUR.PHASEI ---
1244- detailed report given to trung loyd in post op at bedside. 1245- pt left in stable condition with trung loyd and trung aguilar. VSS, dressings CDI, family at b/s
--- NOTE | 2023-05-28 13:28 | EXP.ANES.II ---
[facility] Anesthesia Record Part II Anesthesia Record Part II Discharge Time: 12:30 Destination: Surgical Day Care (OP Surgery) PACU nurse assessment reviewed?: Yes Patient Condition:: Good Anesthesia Complications:: None Swallowing reflex intact?: Yes Airway Patency: Patent Cyanosis?: No Blood Pressure: 102/71 SaO2: 99 Respiratory Rate: 16 Pulse Rate: 86 Temperature: 98 F Mental Status: Alert & Oriented Pain level:: 6 Nausea and/or vomitting:: None Intake, IV Amount: 0 Hydration: Adequate
== END 2023-05-28 13:20 | disposition home or self-care (01) ==
PROVIDERS: PCP Internal Medicine Adolescent Medicine; Visit Provider Orthopaedic Surgery
PROC: (CPT 27385; principal; 2023-05-28 09:45)
DX: S76.112A Strain of left quadriceps muscle, fascia and tendon, initial encounter (principal); W01.0XXA Fall on same level from slipping, tripping and stumbling without subsequent striking against object, initial encounter; Y92.096 Garden or yard of other non-institutional residence as the place of occurrence of the external cause; Z87.891 Personal history of nicotine dependence; Z79.899 Other long term (current) drug therapy
CPT/HCPCS: 27385; 96374; C9290; J2405

== ENCOUNTER 2023-07-29 08:00 | Outpatient (RCR) | payer MEDICARE, SELFPAY ==
--- NOTE | 2023-07-13 09:02 | HMH.PTOPEV ---
PT Outpatient Evaluation Rehab PT Outpatient Evaluation Start: 07/13/23 08:25 Freq: Status: Active Protocol: Document 07/13/23 08:26 JE (Rec: 07/13/23 09:02 JE [id number]) E-signed By Jeancarlos Charles, PT Outpatient Therapy Subjective History Subjective History Pt presents s/p left quad tendon repair, sx. on 05/28/23. Pt reports injury to left LE/ quad tendon occurred during a slip and fall on 05/12/23. Pt reports excellent post-op healing with 'very little pain ', some lingering tightness in the anterior aspect of the left knee, weakness, minimal swelling. Pt reports no limitations w/standing or wlaking endurance in left knee T-scope brace. New diagnosis of cancer in past 12 No months? Chief Complaint Stiff,Weakness Symptom Type Other Symptoms Relieved By Rest/Positioning Symptoms Aggravated By Physical Activity Prior Functional Limitations None Current Functional Limitations Squatting,Recreation Activity, Walking,Stairs Symptom Description Intermittent Level of pain today (0-10) 0 Pain scale - at its best (0-10) 0 Pain scale - at its worst (0-10) 2 Hip/Knee Eval Gait Observation General Gait Pattern Observation Antalgic Gait Palpation Tenderness left Knee Palpation Finding Tenderness Knee Palpation Overall Comment 0-1/4 left quad tendon MMT Hip Flexion Strength Grade 4- Good- Hip Abduction Strength Grade 4- Good- Hip Adduction Strength Grade 4- Good- Hip Extension Strength Grade 4 Good Hip External Rotation Strength Grade 4 Good Hip Internal Rotation Strength Grade 4 Good Knee Extension Strength Grade 4- Good- Knee Flexion Strength Grade 4 Good ROM Knee Flexion Active Range of Motion ( 0-75 degrees) Knee Flexion Passive Range of Motion ( 0-81 degrees) Lower Extremity Functional Index Activities Today, do you or would you have any difficulty at all with: a.Any of your usual work, housework or Moderate difficulty school activities b. Your usual hobbies, recreational or Moderate difficulty sporting activities c. Getting into or out of the bath A little bit of difficulty d. Walking between rooms No difficulty e. Putting on your shoes or socks A little bit of difficulty f. Squatting Extreme difficulty or unable to perform activity g. Lifting an object, like a bag of No difficulty groceries from the floor h. Performing light activities around No difficulty your home i. Performing heavy activities around A little bit of difficulty your home j. Getting into or out of a car A little bit of difficulty k. Walking 2 blocks Moderate difficulty l. Walking a mile Quite a bit of difficulty m. Going up or down 10 stairs (about 1 A little bit of difficulty flight of stairs) n. Standing for 1 hour A little bit of difficulty o. Sitting for 1 hour No difficulty p. Running on even ground Extreme difficulty or unable to perform activity q. Running on uneven ground Extreme difficulty or unable to perform activity r. Making sharp turns while running fast Extreme difficulty or unable to perform activity s. Hopping Extreme difficulty or unable to perform activity t. Rolling over in bed Moderate difficulty LEFI Score Lower Extremity Functional Index Score 43 Outpatient Therapy Assessment Impairments Problems/Impairmments Palpation Tenderness,Impaired Range of Motion,Impaired Strength,Impaired Gait Pattern ,Impaired Walking,Impaired Stair Climbing,Impaired Squatting,Subjective C/O Pain, Impaired Self Care/Self Management Prognosis Rehab Potential Good Clinical Impression Consistent with Diagnosis Yes Short Term Goals Number of Weeks 4 Decreased Palpation Tenderness Yes: 0/4 left quad tendon Increase Range of Motion Yes: 0-120 LEFT KNEE FLX Increase Strength Yes: 4/5 LLE Improve Gait Pattern without Assistive Yes: WFL ON LEVEL TERRAIN Device Increase Ability to Walk Yes: 60MIN Improve Ability to Climb Stairs Yes: WFL Decrease Subjective C/O Pain Yes: 2/10 W/ABOVE ACTIVITIES Patient to be Ind w/ HEP Yes Alf Goals Number of Weeks 6-8 Increase Range of Motion Yes: 0-125-130 LEFT KNEE AROM Increase Strength Yes: 4+-5/5 LLE Improve Gait Pattern without Assistive Yes: WFL ON UNLEVEL TERRAIN Device Increase Ability to Walk Yes: 2 HRS Improve Ability to Squat Yes: WFL FULL-DEPTH Improve Tolerance to 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, 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 Improve LEFI Score Yes: 55-60 Decrease Subjective C/O Pain Yes: 0-2/10 W/ABOVE ACTIVITIES Patient to be Ind w/ Advanced HEP Yes Outpatient Therapy Plan of Care Treatment Plan May Include Therapeutic Exercise Including Home Yes Exercise Program Manual Therapy Techniques Yes Neuromuscular Re-education Yes Therapeutic Activities to Return to Yes Previous Functional/Work Level Gait Training Yes ADL/Self Care Education Yes Dry Needling Yes Thermal Modalities Yes Electrical Stimulation Yes Ultrasound/Phonophoresis Yes Orthotics/Bracing/Splinting Yes Vasopneumatic Compression Pump Yes Eval/Re-Eval Yes Frequency Times per week 2-3 Duration Number of Weeks 6-8 Addendums This patient is a candidate for social No or vocational rehab? Patient/Guardian verbally acknowledges Yes understanding of treatment program and consents to further treatment? Patient/Guardian verbally acknowledges Yes understanding of diagnosis, prognosis and goals for treatment? Eval Complexity PT Charges 96396 - Moderate Complexity Shoulder/Elbow Eval Shoulder Objective Measurements Elbow Objective Measurements PHYSICIAN CERTIFICATION: I certify the specified therapy services for Praveen Castanon are required, authorized, and reviewed every 30 days.
== END 2023-07-29 08:05 | disposition home or self-care (01) ==
LOC: PT 08:00
PROVIDERS: Visit Provider Physician Assistant Surgical
DX: M79.605 Pain in left leg (principal)
CPT/HCPCS: 97010; 97014; 97016; 97110; 97140; 97163; 97530; G0283

== ENCOUNTER 2024-01-03 08:29 | Day surgery (SDC) | payer MEDICARE, SELFPAY ==
[2023-12-28 17:08] VITALS: BMI 29.8
[2024-01-03] MEDS: LACTATED RINGERS 1000ML 1,000 ML 25 ML IV (09:01)
[2024-01-03 09:05] VITALS: BP 178/92; PULSE 95; RESP 18; TEMP 36.1; O2SAT 99
--- NOTE | 2024-01-03 09:20 | P.PNANES_ITS ---
[facility] Disclaimer: The information contained in this section may have been updated after the patient was seen, as this information can be updated by other users. Medical History H/O gastroesophageal reflux (GERD) History of hyperlipidemia History of hypertension Surgical History History of colonoscopy History of knee surgery Family History Other No significant family history Social History Smoking Status: Former smoker tobacco type: cigarettes packs per day: 1 alcohol intake: never substance use type: denies use current occupational status: employed Travel in the last 8 weeks: None household members: spouse housing: house caffeine: No [facility] Anesthesia Checklist Patient Identification Patient Identification: Arm Band Structural Data Admitted From: Home Planned Operative Procedure/s: Colonoscopy Consent for Planned Operative Procedure(s) Verified: Yes Verified Documents: Surgical Consent and History and Physical NPO Status Verified Time NPO: 00:00 Additional verifications Anesthesia Reactions: No Hx Blood Transfusions: No Blood Transfusion Reaction: No Airway Assessment Mallampati Score:: Class II C-Spine Mobility Assessed: Yes TMJ Mobility Assessed: Yes Dentition: Good Dentition Neurological Assessment Level of Consciousness: Awake, Alert and Appropriate Anesthesia Plan Anesthesia Risk discussed: Yes Anesthesia Plan: Verified ASA Class: II Anesthesia Type: MAC
--- NOTE | 2024-01-03 10:05 | P.HP_ITS ---
History of Present Illness *Admission Date: 01/03/24 *Reason for visit:: Personal history of adenomatous colon polyps/surveillance *History of present illness: Mr. Castanon is a 68-year-old gentleman who is here for surveillance colonoscopy secondary to a personal history of adenomatous colon polyps. The examination is deemed medically necessary for colonoscopy. The patient has been seen, interviewed and examined prior to the procedure by both myself and the anesthesia provider. [facility] Disclaimer: The information contained in this section may have been updated after the patient was seen, as this information can be updated by other users. Medical History (Updated 01/03/24 @ 10:06 by Hill Carrasco II, MD) H/O gastroesophageal reflux (GERD) History of hyperlipidemia History of hypertension Surgical History History of colonoscopy History of knee surgery Family History Other No significant family history Social History Smoking Status: Former smoker tobacco type: cigarettes packs per day: 1 alcohol intake: never substance use type: denies use current occupational status: employed Travel in the last 8 weeks: None household members: spouse housing: house caffeine: No Other Medical History Have you received the Flu Vaccine for this season: No Have you received the Pneumonia Vaccine: No Review of Systems Review of Systems Review of systems (narrative): Negative *Cardiovascular Comments: Negative *Gastrointestinal Comments: Negative *Genitourinary Comments: Negative *Musculoskeletal Comments: Negative *Neurologic Comments: Negative Meds Home Medications and Allergies Home Medications ?Medication ?Instructions ?Recorded ?Confirmed ?Type aspirin 81 mg chewable tablet 81 mg PO DAILY #30 tabs 10/01/21 12/28/23 Rx lisinopril 10 mg tablet 10 mg PO BID #60 tabs 10/01/21 12/28/23 Rx amlodipine 10 mg tablet 10 mg PO DAILY 05/25/23 12/28/23 History ezetimibe 10 mg tablet 10 mg PO DAILY 05/25/23 12/28/23 History hydrochlorothiazide 25 mg tablet 25 mg PO DAILY 05/25/23 12/28/23 History hydrocodone 5 mg-acetaminophen 325 1 tab PO Q4H PRN post op pain #42 05/28/23 12/28/23 Rx mg tablet tabs omega-3 fatty acids 1,000 mg PO DAILY 01/03/24 01/03/24 History New Prescriptions to Start Prescriptions: Allergies Allergy/AdvReac Type Severity Reaction Status Date / Time [id number] Reductase Allergy Other Verified 01/03/24 09:34 Inhibitor Exam Data for Last 24 hours Vital signs and Labs for Last 24 Hours: Temp Pulse Resp BP Pulse Ox O2 Del Method 97.0 F L 95 H 18 178/92 H 99 Room Air 01/03/24 09:05 01/03/24 09:05 01/03/24 09:05 01/03/24 09:05 01/03/24 09:05 01/03/24 09:05 *Routine HEENT Exam Head: Present normocephalic Eye: Present EOMI and PERRL ENT: Present mucous membranes moist *Routine Neck Exam Neck: Present supple *Routine Respiratory Exam Respiratory: Present CTA bilaterally *Routine Cardiovascular Exam Cardiovascular: Present RRR *Routine Abdominal Exam Abdominal: Present soft and normoactive bowel sounds; Absent tenderness *Routine Rectal Exam Rectal:: deferred *Routine Genitalia Exam Genitalia:: deferred *Routine Extremities Exam Extremities: Absent cyanosis, clubbing or edema *Routine Skin Exam Skin: Present warm; Absent rash *Routine Neurological Exam Neurological: Present alert and oriented X3 Assessment and Plan *Assessment and plan (1) Personal history of adenomatous and serrated colon polyps: Status: Acute Category: Medical Code(s): Z86.0101 - Personal history of adenomatous and serrated colon polyps Plan A/P: 1. Surveillance colonoscopy secondary to personal history of adenomatous colon polyps is the preprocedural diagnosis. The patient will be anesthetized/sedated using MAC sedation. The patient has been seen and examined. Cardiac and lung assessment prior to the examination is stable. Proceed with planned colonoscopy
[2024-01-03 10:06] VITALS: O2SAT 99
--- NOTE | 2024-01-03 10:08 | P.PCN_ITS ---
[facility] Procedure Note Date: 01/03/24 Time: : Procedure Note:: Colonoscopy Procedure Report: Colonoscopy with cold snare polypectomy Endoscopist: Hill Carrasco II, MD Referring physician: Delano Rodriguez M.D. Date of Procedure: January 03, 2024 Equipment: Olympus 190 variable stiffness pediatric colonoscope Sedation: MAC sedation Indication: Mr. Castanon is a 68-year-old gentleman who is here for follow-up surveillance colonoscopy secondary to a personal history of adenomatous colon polyps and a family history of colon cancer. The patient did have a colonoscopy in June 2018 and had 3 polyps (tubular adenomas x 3) removed. His father had colon cancer in his late 60s. The patient reports no abdominal pain, weight loss, change in his bowel habits or rectal bleeding. He does take the fiber bowel regimen (combined MiraLAX plus Metamucil) which helps to regulate bowel function. Procedure: Prior to the procedure, a history and physical exam was performed, and patient's medications and allergies were reviewed. The risks, benefits and alternatives of the sedation and procedure were discussed with the patient. All questions were answered and informed consent was obtained. The patient was brought to the procedure room. Patient identification and proposed procedure were verified by the physician and the nurse. The patient was placed in a left lateral decubitus position and the scope was passed under direct vision. Throughout the procedure, the patient's blood pressure, pulse, and oxygen saturations were monitored continuously. The colonoscopy was accomplished without difficulty. The patient tolerated the procedure well. Findings: On digital rectal examination there was normal rectal tone. There were no external hemorrhoids. The prostate was 2-3+ with midline lower margin prostate nodule. The colonoscope was introduced through the anal canal to the r ectum and advanced to the cecum. The ileocecal valve and appendiceal orifice were identified. The scope was advanced a short distance into the ileum which appeared grossly normal. The scope was then withdrawn into the colon. The cecum, ascending and transverse colon and mucosa were grossly normal. There were 3 polyps (transverse x 1 (4 mm), rectosigmoid x 1 (7 mm) and rectum x 1 (4 to 5 mm)). These were all removed via cold snare polypectomy. There were scattered diverticuli throughout the descending and sigmoid colon (LEFT colon). The rectum itself was normal. Upon retroflexion within the rectum there were grade 2 internal hemorrhoids. The preparation was excellent throughout with [place] Preparation Score of 9. The cecal time was 12 minutes. Impression: 1. Colonic polyps x 3 2. Left-sided diverticulosis 3. Grade 2 internal hemorrhoids 4. Lower midline margin prostate nodule Plan: I will follow-up the polyp histology and recommend repeat surveillance colonoscopy again in 5 years. I would continue the fiber bowel regimen (combined MiraLAX plus Metamucil) daily. I will check PSA testing.
[2024-01-03 10:32] VITALS: BP 103/65; PULSE 83; RESP 16; TEMP 36.6; O2SAT 94
[2024-01-03 10:47] VITALS: BP 128/79; PULSE 69; RESP 16; O2SAT 96
[2024-01-03 11:02] VITALS: BP 127/87; PULSE 77; RESP 16; O2SAT 98
[2024-01-03 12:08] LABS: Prostate Specific Ag, Diagnost 2.24 ng/ml (0.0-4.0)
== END 2024-01-03 11:17 | disposition home or self-care (01) ==
PROVIDERS: PCP Internal Medicine Adolescent Medicine; Visit Provider Internal Medicine Gastroenterology
PROC: 0DJD8ZZ Inspection of Lower Intestinal Tract, Via Natural or Artificial Opening Endoscopic (ICD-10-PCS; CPT 45378; principal; 2024-01-03 10:00)
DX: Z12.11 Encounter for screening for malignant neoplasm of colon (principal); D12.7 Benign neoplasm of rectosigmoid junction; K62.1 Rectal polyp; D12.3 Benign neoplasm of transverse colon; Z86.0101 Personal history of adenomatous and serrated colon polyps; Z80.0 Family history of malignant neoplasm of digestive organs; K57.30 Diverticulosis of large intestine without perforation or abscess without bleeding; K64.1 Second degree hemorrhoids
CPT/HCPCS: 45385; 36415; 84153; 88305; J7120

== ENCOUNTER 2024-06-29 10:42 | Outpatient (CLI) | payer MEDICARE, SELFPAY ==
--- NOTE | 2024-06-29 10:47 | XR_ITS ---
FINAL REPORT CLINICAL HISTORY: .pain from fall FINDINGS: AP, oblique, and lateral views of the right wrist were obtained. There is no prior exam for comparison. There is calcification dorsal to the carpal bones most consistent with a triquetral fracture. There is mild degenerative joint disease. Mild dorsal soft tissue edema is identified. IMPRESSION: Triquetral fracture. Reviewed, Interpreted and Dictated by Rozina Smith MD Transcribed by Mirna Chaves Authenticated and . [facility]
--- NOTE | 2024-06-29 10:47 | XR_ITS ---
FINAL REPORT CLINICAL HISTORY: R/O FRACTURE FROM FALL pain in thumb FINDINGS: AP, lateral and oblique views of the right hand were obtained. There is no prior exam for comparison. There is no acute fracture or dislocation. There is mild multijoint degenerative disease, most pronounced of the DIP joints. The soft tissues are normal. IMPRESSION: Multijoint degenerative disease. Reviewed, Interpreted and Dictated by Rozina Smith MD Transcribed by Mirna Chaves Authenticated and [facility]
== END 2024-06-29 23:59 | disposition home or self-care (01) ==
LOC: RAD 10:43
PROVIDERS: PCP Internal Medicine Adolescent Medicine; Visit Provider Internal Medicine Adolescent Medicine
DX: M25.531 Pain in right wrist (principal); M79.644 Pain in right finger(s)
CPT/HCPCS: 73110; 73130